=== PATIENT | male | born 1985 | race African-American/Black ===

== ENCOUNTER 2021-08-26 16:00 | Inpatient (IN) | payer MEDICAID ==
[~2021-08-26] VITALS: Ht 180.3 cm
[2021-08-26] MEDS ORDERED: olanzapine 10mg tablet PO STA (16:13)
[2021-08-26] MEDS ORDERED: LORazepam 1 MG tablet PO ONE (16:15)
[2021-08-26] MEDS ORDERED: DICL20GE TOP (16:46)
[2021-08-26 17:12] LABS: BASOPHILS # (AUTO) 0.1 X10'3 (0-0.2); BASOPHILS % (AUTO) 0.9 % (0-1); EOSINOPHILS # (AUTO) 0.1 X10'3 (0-0.9); EOSINOPHILS % (AUTO) 2.3 % (0-6); HEMATOCRIT 42.5 % (42.0-52.0); HEMOGLOBIN 13.9 g/dl (14.0-17.9); LYMPHOCYTES # (AUTO) 1.6 X10'3 (1.1-4.8); LYMPHOCYTES % (AUTO) 27.7 % (21-51); MEAN CORPUSCULAR HEMOGLOBIN 24.2 PG (27.0-31.0); MEAN CORPUSCULAR HGB CONC 32.7 g/dL (33.0-36.5); MEAN PLATELET VOLUME 8.4 FL (7.4-10.4); MONOCYTES # (AUTO) 0.4 X10'3 (0-0.9); MONOCYTES % (AUTO) 6.9 % (2-12); NEUTROPHILS # (AUTO) 3.6 X10'3 (1.8-7.7); NEUTROPHILS % (AUTO) 62.2 % (42-75); PLATELET COUNT 229 X10'3 (140-440); RED BLOOD COUNT 5.74 X10'6 (4.70-6.10); RED CELL DISTRIBUTION WIDTH 14.7 % (11.5-14.5); WHITE BLOOD COUNT 5.8 X10'3 (4.5-11.0)
[2021-08-26 17:21] LABS: ALANINE AMINOTRANSFERASE 106 U/L (12-78); ALBUMIN 4.1 G/DL (3.4-5.0); ALBUMIN/GLOBULIN RATIO 1.1 (1.1-1.5); ALKALINE PHOSPHATASE 57 IU/L (46-116); ANION GAP 11 (8-16); ASPARTATE AMINO TRANSFERASE 81 U/L (10-37); BILIRUBIN,TOTAL 0.3 MG/DL (0.1-1.0); BLOOD UREA NITROGEN 21 MG/DL (7-18); BUN/CREATININE RATIO 17.1 (5.4-32.0); CALCIUM 8.9 MG/DL (8.5-10.1); CHLORIDE 102 MMOL/L (99-107); CREATININE 1.23 MG/DL (0.60-1.10); GLUCOSE 103 MG/DL (70-104); POTASSIUM 4.2 MMOL/L (3.5-5.1); SODIUM 142 MMOL/L (135-145); TOTAL CARBON DIOXIDE 29.5 MMOL/L (24-32); eGFR 67 ML/MIN
[2021-08-26 17:22] LABS: CLARITY,URINE CLEAR (Clear); COLOR,URINE YELLOW (Yellow); GLUCOSE, URINE NEGATIVE (Neg); KETONES,URINE 15 mg/dl (Neg); LEUKOCYTE ESTERASE ,URINE NEGATIVE (Neg); NITRITES, URINE NEGATIVE (Neg); OCCULT BLOOD,URINE NEGATIVE (Neg); PH,URINE 5.5 (4.8-8.0); PROTEIN,URINE NEGATIVE (Neg)
[2021-08-26 17:24] LABS: UA COLLECTION TYPE VOIDED
[2021-08-26 17:30] LABS: ETHANOL < 0.010 GM/DL (0.0-0.010); VALPROATE 7 UG/ML (50-100)
--- NOTE | 2021-08-26 17:31 | NUR ---
TRIED TO WAKE UP PT ,BUT STATED "I AM TIRED AND SLEEPY IF YOU CAN COME LATER ".HAVE NOT DONE ASSESSMENT OR DID ANY SUICIDE ASSESSMENT AT THIS TIME.
[2021-08-26 17:35] LABS: URINE AMPHETAMINE SCREEN POSITIVE (Neg); URINE BARBITUATE SCREEN NEGATIVE (Neg); URINE BENZODIAZEPINES SCREEN NEGATIVE (Neg); URINE CANNABINOID SCREEN POSITIVE (Neg); URINE COCAINE SCREEN NEGATIVE (Neg); URINE METHADONE SCREEN NEGATIVE (Neg); URINE OPIATE SCREEN NEGATIVE (Neg); URINE PHENCYCLIDINE SCREEN NEGATIVE (Neg)
--- NOTE | 2021-08-26 17:44 | NUR ---
PT IS SLEEPING AT THIS TIME.
--- NOTE | 2021-08-26 18:15 | NUR ---
Received report from Reji RN, assumed care of pt. Pt currently in main ER bed 8, pt to be moved to Overflow by tech per Reji JOHNSON. Pt sleeping at this time, received one time order of Zyprexa and Ativan and has been resting per nurse.
--- NOTE | 2021-08-26 19:15 | NUR ---
Pt brought over from main ER to bed 21 by DOMINIC Multani, he was ambulatory, he does appear sedated, he was able to answer some questions, but due to sedation most history was obtained via chart review. He denies any pain at this time, stated he did want to eat dinner, which was provided to him, but patient has fallen asleep without eating.
--- NOTE | 2021-08-26 19:49 | NUR ---
Pt came in to ER due to not feeling safe [facility] the [facility], he is new to the area and lost his meds prior to his arrival. He has a dx of Schizophrenia and reports hearing command auditory hallucinations that tell him to kill himself. Denies any current S/I or H/I. No significant medical hx, he does have chronic knee pain. He denies any ETOH use, but recently used meth 2 days ago, no other drug hx. He is low risk for suicide, he is on a 179 and will be seen by [facility] tomorrow for eval.
--- NOTE | 2021-08-26 20:30 | NUR ---
Packet faxed to [facility], they called to notify us that they received it and that he will be seen in the am.
--- NOTE | 2021-08-26 21:46 | NUR ---
Pt awake, drank some water, requesting food, dinner tray was given, patient sitting up and eating at this time.
--- NOTE | 2021-08-26 21:50 | NUR ---
Pt does appear to be responding to internal stimuli, observed talking uriel h Addendum: 08/26/21 at 2150 by ANKITA observed talking to himself.
--- NOTE | 2021-08-26 23:29 | NUR ---
Pt sleeping on L side, no signs of distress.
--- NOTE | 2021-08-27 01:29 | NUR ---
Pt continues to sleep, no signs of distress.
--- NOTE | 2021-08-27 03:20 | NUR ---
Pt lying on L side, sleeping, no distress.
--- NOTE | 2021-08-27 05:09 | NUR ---
Pt remains asleep at this time, no signs of distress.
--- NOTE | 2021-08-27 06:30 | NUR ---
Patient appears to be sleeping. No distress noted, respirations even and unlabored.
--- NOTE | 2021-08-27 08:33 | NUR ---
Patient appears to be sleeping, no distress noted. Respirations even and unlabored.
--- NOTE | 2021-08-27 09:00 | NUR ---
Woke patient to eat breakfast and complete 1:1 assessment. Pt reports he came to the hospital because "I wasn't feeling safe." Pt reports intermittent auditory hallucinations saying "they are going to kill me." Pt endorses suicidal thoughts without a plan. Pt states he doesn't want to go back to the [facility] as "I don't feel safe." Pt states he moved from the [place] to go to [facility] [place] "[place]." Pt was recently kicked out of [facility] "for being high." Pt reports he has not been medication compliant unsure of last dose. Pt takes Depakote. Valproic level drawn 08/26 was 7. Pt reports one SA about six months ago - OD on pills. [facility] takes Depakote 750 mg BID last filled on 08/01. Bupropion XL 300 mg daily last filled on 06/05.
--- NOTE | 2021-08-27 10:30 | NUR ---
Pt continues to sleep comfortably, respirations even and unlabored.
[2021-08-27] MEDS ORDERED: DIVA125T31 PO (11:16)
[2021-08-27] MEDS ORDERED: DIVA-76 PO (11:16)
--- NOTE | 2021-08-27 11:30 | NUR ---
Called [facility] for current med list. Also left message with [facility] for updated med list. Pt stated he was recently "kicked out" r/t substance use.
--- NOTE | 2021-08-27 12:02 | NUR ---
[facility] at bedside.
--- NOTE | 2021-08-27 13:30 | NUR ---
Dr. Dixon declined to restart pt on psyche med Depakote until after psyche eval.
--- NOTE | 2021-08-27 13:42 | NUR ---
Pearl cardenas in ED - 08/27/21 at 1344 by SHALINI Pt requested paper and pen to "write." Pt up sitting calmly writing on pad of paper.
--- NOTE | 2021-08-27 13:45 | NUR ---
Pt up to bathroom.
--- NOTE | 2021-08-27 14:48 | NUR ---
RECEIVED PHONE CALL FROM [employer] MACHINE OPERATOR KOKO YEPEZ. STATES IS ANY QUESTIONS CALL HER AT [phone].
--- NOTE | 2021-08-27 15:53 | NUR ---
Pt sleeping comfortably on right side, respirations even and unlabored.
--- NOTE | 2021-08-27 16:30 | NUR ---
Patient was transferred to [facility].
[2021-08-27] MEDS ORDERED: loperamide 2mg capsule PO PRN (16:50)
[2021-08-27] MEDS ORDERED: acetaminophen 325mg tablet PO PRN (16:50)
[2021-08-27] MEDS ORDERED: magnesium hydroxide 30ml (MOM) UD suspension PO PRN (16:50)
[2021-08-27] MEDS ORDERED: mag hydrox/Alum hydrox/simeth 30ml oral suspension PO PRN (16:50)
[2021-08-27 16:59] VITALS: BP 127/59
--- NOTE | 2021-08-27 17:13 | NUR ---
Admission note: PT admitted to [facility] today on 5150 from the emergency room for GD. Pt presents as a failure to thrive as evidenced by being consumed with his fear of getting murdered. Pt believes that someone will kill him if he leaves the hospital. Pt states it is an overwhelming feeling. Pt reports he left [facility] 5-7 days ago and has not taken his medications since. Pt has history of Schizophrenia. Pt cooperative with the admission process. Pt positive for Amphetamines and THC.
[2021-08-27] MEDS: divalproex 250mg tablet, delayed-release PO SCH (20:02)
[2021-08-27] MEDS: divalproex sodium 500mg tablet.DR PO SCH (20:03)
[2021-08-27 20:55] VITALS: BP 130/77
--- NOTE | 2021-08-27 23:37 | NUR ---
Nursing Progress Note: Legal hold:5150 Client on voluntary/involuntary status for GD Report received from nurse Tung JOHNSON with use of SBAR . Why are they here: PT admitted to [facility] today on 5150 from the emergency room for GD. Pt presents as a failure to thrive as evidenced by being consumed with his fear of getting murdered. Pt believes that someone will kill him if he leaves the hospital. Pt states it is an overwhelming feeling. Pt reports he left [facility] 5-7 days ago and has not taken his medications since. Pt has history of Schizophrenia. Pt cooperative with the admission process. Pt positive for Amphetamines and THC. Assessment What has happened this shift:Patient was in the [place] at shift change. He asked this service writer if he could change rooms. He stated that he did not feel safe being in the room he is in. Pt moved to [address] and was more relaxed after the change. He ate snack in the group room keeping to him self. He was med compliant and cooperative. S/I, H/I:thoughts of people wanting to murder him A/VH: to kill self Sleep:See sleep assessment ADL's:independent Group attendance:none Were meds taken:yes Any med S/ENone Mental Status Exam Appearance: dressed in green unit attire. Eye contact: Avoidance Behavior: Quiet, self isolates. Speech: Clear, normal rate, low tone. Mood: Depressed. Affect: Congruent with mood. Thought process: Poverty of Thought Thought Content: Meeting own needs Cognition: paranoid Insight: Poor. Judgment: Poor. PRNs: None. Interventions Therapeutic interventions: Maintained a safe and therapeutic environment, ensured contract for safety, provided clear and simple instructions, attempted to orient to reality, monitored behaviors and need for intervention and redirection, provided active listening and positive encouragement, handwashing r/t +MRSA NS, and maintained Q 15min safety checks. Restraints/seclusion/emergency medication: N/A Justification: Patient continues to be disorganized and delusional. Pt unable to formulate a plan for food, group home or clothing. Pts Clozaril will continue to be titrated to a therapeutic level.
[2021-08-28 07:39] VITALS: BP 110/60
[2021-08-28] MEDS: divalproex sodium 500mg tablet.DR PO SCH ×2 (07:55→20:45)
[2021-08-28] MEDS: divalproex 250mg tablet, delayed-release PO SCH ×2 (07:55→20:45)
[2021-08-28] MEDS: nicotine 21mg patch - 24 hr TD SCH (07:55)
[2021-08-28 08:03] LABS: CHOL/HDL RATIO 4.9 (0.00-4.99); CHOLESTEROL 172 MG/DL (0-200); HDL CHOLESTEROL 35 MG/DL (35-60); LDL CHOLESTEROL 91 MG/DL (50-100); TRIGLYCERIDES 129 MG/DL (20-135)
[2021-08-28 08:20] LABS: HEMOGLOBIN A1C 5.8 % (4.5-6.2)
[2021-08-28] MEDS ORDERED: buPROPion SR 150mg tablet PO ONE (11:10)
[2021-08-28] MEDS: buPROPion SR 150mg tablet PO SCH (14:47)
--- NOTE | 2021-08-28 17:33 | NUR ---
Nursing Progress Note: Legal hold: 5150 Client on involuntary status for GD Report received from BIPIN Ramirez with use of SBAR. Why they are here: PT admitted to [facility] today on 5150 from the emergency room for GD. Pt presents as a failure to thrive as evidenced by being consumed with his fear of getting murdered. Pt believes that someone will kill him if he leaves the hospital. Pt states it is an overwhelming feeling. Pt reports he left [facility] 5-7 days ago and has not taken his medications since. Pt has history of Schizophrenia. Pt cooperative with the admission process. Pt positive for Amphetamines and THC. Assessment What has happened this shift: Patient is resting quietly in bed at the start of the shift. Eats meals in the community room and interacts appropriately with staff and peers. Cooperative with 1:1 assessment and medications. Engages in pleasant conversation and answers questions appropriately. Continues to believe that people are trying to kill him but does states, Its in my head. States he is feeling safe here on the unit and contracts for safety while here. Spends time in common areas socializing with peers and takes short naps and rests in his room. S/I, H/I: Thoughts of harming himself related to AH A/VH: Command hallucinations that tell him to harm himself Sleep: 1 hour in the morning, takes brief naps during the day ADL's: Independent Group attendance: yes Were meds taken: yes Any med S/E: None observed or reported Mental Status Exam Appearance: Young looking tall male, neat, clean, wearing green unit scrubs. Eye contact: Avoidant Behavior: Cooperative, guarded Speech: Clear, normal rate, soft Mood: Good. Affect: Congruent, full range Thought process: Paranoid, delusional Thought Content: Believes people are trying to kill him Cognition: A/O x3 to self, time and place Insight: Poor Judgment: Poor Interventions PRNs: None. Therapeutic interventions: Maintained a safe and therapeutic environment, ensured contract for safety, provided clear and simple instructions, attempted to orient to reality, monitored behaviors and need for intervention and redirection, provided active listening and positive encouragement, handwashing r/t +MRSA NS, and maintained Q 15min safety checks. Restraints/seclusion/emergency medication: N/A Justification: Patient continues to be disorganized and delusional. Pt unable to formulate a plan for food, fdc or clothing. Pts Clozaril will continue to be titrated to a therapeutic level.
[2021-08-28] MEDS: NICOTINE POLACRILEX 2 MG LOZENGE BC PRN (19:28)
[2021-08-28 19:35] VITALS: BP 122/70
--- NOTE | 2021-08-28 20:05 | NUR ---
Nora Jaimes: [phone]
[2021-08-28] MEDS: traZODone 50mg tablet PO PRN (20:44)
[2021-08-28] MEDS ORDERED: OLANZAPINE 5 MG TABLET PO SCH (21:00)
--- NOTE | 2021-08-29 02:51 | NUR ---
Nursing Progress Note: Legal hold: 5150 Client on involuntary status for GD Report received from BIPIN Ruby with use of SBAR. Why they are here: PT admitted to [facility] today on 5150 from the emergency room for GD. Pt presents as a failure to thrive as evidenced by being consumed with his fear of getting murdered. Pt believes that someone will kill him if he leaves the hospital. Pt states it is an overwhelming feeling. Pt reports he left [facility] 5-7 days ago and has not taken his medications since. Pt has history of Schizophrenia. Pt cooperative with the admission process. Pt positive for Amphetamines and THC. Assessment What has happened this shift: Patient watching TV in Rec room with other pts at start of shift. Introductions made, pt asked for nicotine lozenge. Pt spent shift watching TV till bedtime. Came to group room for snack. Pt pleasant and cooperative with care. Pt concerned that Zyprexa is making him gain weight but he agreed to take it tonight and talk to Doctor tomorrow about a possible different antipsychotic. Pt said he hears voices that say they are going to kill him. He says he always hears them and medication does not help. S/I, H/I: Thoughts of harming himself related to AH A/VH: Command hallucinations that tell him to harm himself Sleep: asleep at this time ADL's: Independent Group attendance: yes Were meds taken: yes Any med S/E: None observed or reported Mental Status Exam Appearance: Young looking tall male, neat, clean, wearing green unit scrubs. Eye contact: Avoidant Behavior: Cooperative, guarded Speech: Clear, normal rate, soft Mood: Good. Affect: Congruent, full range Thought process: Paranoid, delusional Thought Content: Believes people are trying to kill him Cognition: A/O x3 to self, time and place Insight: Poor Judgment: Poor Interventions PRNs: Trazodone Therapeutic interventions: Maintained a safe and therapeutic environment, ensured contract for safety, provided clear and simple instructions, attempted to orient to reality, monitored behaviors and need for intervention and redirection, provided active listening and positive encouragement, handwashing r/t +MRSA NS, and maintained Q 15min safety checks. Restraints/seclusion/emergency medication: N/A Justification: Patient continues to be disorganized and delusional. Pt unable to formulate a plan for food, long term or clothing. Pts Clozaril will continue to be titrated to a therapeutic level.
[2021-08-29 07:00] VITALS: BP 174/76
[2021-08-29] MEDS: divalproex 250mg tablet, delayed-release PO SCH ×2 (08:06→20:15)
[2021-08-29] MEDS: nicotine 21mg patch - 24 hr TD SCH (08:06)
[2021-08-29] MEDS: buPROPion SR 150mg tablet PO SCH ×2 (08:06→15:08)
[2021-08-29] MEDS: divalproex sodium 500mg tablet.DR PO SCH ×2 (08:06→20:15)
--- NOTE | 2021-08-29 17:52 | NUR ---
Nursing Progress Note: Legal hold: 5150 Client on involuntary status for GD Report received from BIPIN Ramirez with use of SBAR. Why they are here: PT admitted to [facility] today on 5150 from the emergency room for GD. Pt presents as a failure to thrive as evidenced by being consumed with his fear of getting murdered. Pt believes that someone will kill him if he leaves the hospital. Pt states it is an overwhelming feeling. Pt reports he left [facility] 5-7 days ago and has not taken his medications since. Pt has history of Schizophrenia. Pt cooperative with the admission process. Pt positive for Amphetamines and THC. Assessment What has happened this shift: Received pt. sleeping in bed at shift change. Patient attends meals and snacks in the community room, but does not engage with peers or staff. Patient reports that he is still having auditory hallucinations that make him feel suicidal. Patient mostly sits in the community room or in the rec room watching t.v. with others. Patient is guarded in his responses, and says Im good when ending the conversation. S/I, H/I: Thoughts of harming himself related to AH A/VH: Command hallucinations that tell him to harm himself Sleep: 7.0 hrs. ADL's: Independent Group attendance: NA Were meds taken: yes Any med S/E: None observed or reported Mental Status Exam Appearance: Clean, black, young male dressed in hospital attire. Eye contact: Avoidant Behavior: Cooperative, guarded Speech: Clear, normal rate, soft Mood: Im Good. Affect: Blunted. Thought process: Paranoid, delusional Thought Content: Believes people are trying to kill him Cognition: A/O x3 to self, time and place Insight: Poor Judgment: Poor Interventions PRNs: None. Therapeutic interventions: Maintained a safe and therapeutic environment, ensured contract for safety, provided clear and simple instructions, attempted to orient to reality, monitored behaviors and need for intervention and redirection, provided active listening and positive encouragement, handwashing r/t +MRSA NS, and maintained Q 15min safety checks. Restraints/seclusion/emergency medication: N/A Justification: Patient continues to be disorganized and delusional. Pt unable to formulate a plan for food, chcf or clothing.
[2021-08-29 19:34] VITALS: BP 113/66
[2021-08-29] MEDS: asenapine 5mg TAB.SUBL SL SCH (20:18)
[2021-08-29] MEDS: traZODone 50mg tablet PO PRN (20:20)
--- NOTE | 2021-08-30 03:17 | NUR ---
Nursing Progress Note: Legal hold: 5150 Client on involuntary status for GD Report received from BIPIN Ruby with use of SBAR. Why they are here: PT admitted to [facility] on 5150 from the emergency room for GD. Pt presents as a failure to thrive as evidenced by being consumed with his fear of getting murdered. Pt believes that someone will kill him if he leaves the hospital. Pt states it is an overwhelming feeling. Pt reports he left [facility] 5-7 days ago and has not taken his medications since. Pt has history of Schizophrenia. Pt cooperative with the admission process. Pt positive for Amphetamines and THC. Assessment What has happened this shift: Patient watching TV in group room with other pts. Pt spent shift watching TV till bedtime. Ate snack in group rooml Pt pleasant and cooperative with care. Pt started a new medication tonight pt verbalized that he had discussed this new medication with the Doctor. Pt said his day was "OK" he still hears voices and has SI but he describes it as "Not bad." S/I, H/I: Thoughts of harming himself related to AH A/VH: Command hallucinations that tell him to harm himself Sleep: asleep at this time ADL's: Independent Group attendance: yes Were meds taken: yes Any med S/E: None observed or reported Mental Status Exam Appearance: Young looking tall male, neat, clean, wearing green unit scrubs. Eye contact: Avoidant Behavior: Cooperative, guarded Speech: Clear, normal rate, soft Mood: Good. Affect: Congruent, full range Thought process: Paranoid, delusional Thought Content: Believes people are trying to kill him Cognition: A/O x3 to self, time and place Insight: Poor Judgment: Poor Interventions PRNs: Trazodone Therapeutic interventions: Maintained a safe and therapeutic environment, ensured contract for safety, provided clear and simple instructions, attempted to orient to reality, monitored behaviors and need for intervention and redirection, provided active listening and positive encouragement, handwashing r/t +MRSA NS, and maintained Q 15min safety checks. Restraints/seclusion/emergency medication: N/A Justification: Patient continues to be disorganized and delusional. Pt unable to formulate a plan for food, chcf or clothing. Pts Clozaril will continue to be titrated to a therapeutic level.
[2021-08-30 07:00] VITALS: BP 129/72
[2021-08-30] MEDS: divalproex sodium 500mg tablet.DR PO SCH ×2 (07:51→20:04)
[2021-08-30] MEDS: buPROPion SR 150mg tablet PO SCH ×2 (07:51→15:07)
[2021-08-30] MEDS: divalproex 250mg tablet, delayed-release PO SCH ×2 (07:52→20:05)
[2021-08-30] MEDS: asenapine 5mg TAB.SUBL SL SCH ×3 (08:00→20:05)
[2021-08-30] MEDS: nicotine 21mg patch - 24 hr TD SCH (08:02)
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
[2021-08-30] MEDS: traZODone 50mg tablet PO PRN (20:05)
[2021-08-30 20:39] VITALS: BP 117/72
--- NOTE | 2021-08-31 02:49 | NUR ---
Nursing Progress Note: Legal hold: 5150 Client on involuntary status for GD Report received from ALEX Ruby with use of SBAR . Why are they here: PT admitted to [facility] today on 5150 from the emergency room for GD. Pt presents as a failure to thrive as evidenced by being consumed with his fear of getting murdered. Pt believes that someone will kill him if he leaves the hospital. Pt states it is an overwhelming feeling. Pt reports he left [facility] 5-7 days ago and has not taken his medications since. Pt has history of Schizophrenia. Pt cooperative with the admission process. Pt positive for Amphetamines and THC. Assessment What has happened this shift: Patient was seen in the rec room for 1:1. He was sitting watching a football game with another peer. Patient states that he is feeling good, and is still happy in his new room. Patient is quiet and mild-mannered. He does not talk much, but answers yes/no questions. Patient says that he still feel people are after him. He went to group room for snacks, received HS meds, then went to bed. S/I, H/I: Denies A/VH: Patient has command hallucinations, telling him to kill himself. He also believs people want to kill him. Sleep: See sleep assessment ADL's: Independent Group attendance: None Were meds taken:yes Any med S/E: None reported or observed Mental Status Exam Appearance: Large black man wearing unit scrubs. Eye contact: Avoidance Behavior: Quiet, self isolates. Speech: Clear, normal rate, low tone. Mood: Depressed. Affect: Congruent with mood. Thought process: Poverty of Thought Thought Content: Meeting own needs Cognition: paranoid Insight: Poor. Judgment: Poor. PRNs: None. Interventions Therapeutic interventions: Maintained a safe and therapeutic environment, ensured contract for safety, provided clear and simple instructions, attempted to orient to reality, monitored behaviors and need for intervention and redirection, provided active listening and positive encouragement, handwashing r/t +MRSA NS, and maintained Q 15min safety checks. Restraints/seclusion/emergency medication: N/A Justification: Patient continues to be disorganized and delusional. Pt unable to formulate a plan for food, care home or clothing. Pts Clozaril will continue to be titrated to a therapeutic level.
[2021-08-31] MEDS: asenapine 5mg TAB.SUBL SL SCH (07:46)
[2021-08-31] MEDS: divalproex 250mg tablet, delayed-release PO SCH (07:46)
[2021-08-31] MEDS: buPROPion SR 150mg tablet PO SCH (07:46)
[2021-08-31] MEDS: nicotine 21mg patch - 24 hr TD SCH (07:46)
[2021-08-31] MEDS: divalproex sodium 500mg tablet.DR PO SCH ×2 (07:46→20:21)
[2021-08-31 08:06] VITALS: BP 132/69
--- NOTE | 2021-08-31 10:43 | NUR ---
Pt. attended group today. Todays group was about the difference between Growth Mindset vs. Fixed Mindset. We learned about the differences and then discussed what aspect of developing a growth mindset they wanted to work on. Pt. engaged minimally in the group. He was quiet and would share his thoughts only when asked. He appeared a guarded. He shared some growth areas he is interested in moving forward in but was very general and guarded. His demeanor was calm and pleasant. Kyra Greene LCSW
--- NOTE | 2021-08-31 11:10 | NUR ---
CM Presenting Issues: Pt's admitted to [facility] due to psychotic sxs impairing pt's ability to maintain self safely @ the [place]. Per assessment data, pt was recently paroled and rt to [facility], Rebeamer is Charity [phone]. Pt currently has [facility]. Interventions: SS had t/c with Charity Almaraz, left vm request rt t/c re pt's need to transfer his MediCal to [facility] and a referral to [facility] upon d/c for continuity of care. Plan: SS will continue to engage [facility] in clt's care and dcp activities when appropriate. Anahi Bee LCSW Addendum: 08/31/21 at 1127 by Anahi Bee Amended: Links added.
--- NOTE | 2021-08-31 13:44 | NUR ---
Nursing Progress Note: KIEL. Legal hold: 525 Expires 09/13 Client on involuntary status for GD Report received from BIPIN Aguilera with use of SBAR. Why they are here: PT admitted to [facility] today on 5150 from the emergency room for GD. Pt presents as a failure to thrive as evidenced by being consumed with his fear of getting murdered. Pt believes that someone will kill him if he leaves the hospital. Pt states it is an overwhelming feeling. Pt reports he left [facility] 5-7 days ago and has not taken his medications since. Pt has history of Schizophrenia. Pt cooperative with the admission process. Pt positive for Amphetamines and THC. Assessment What has happened this shift: Received patient sleeping at shift change, respirations even and unlabored. Pt woke prior to breakfast and sat in rec room with peers drinking coffee. Pt is pleasant and cooperative with care. Pt refused his morning Saphris, stating it makes my mouth numb, thats no good. Pt reports depression and sadness, but feels the medications are helping. Pt describes his mood as kelly chill. Pt is social, but quiet with peers, pt presents with a depressed affect. Some suicidal thoughts, but getting better. Voices are always there. S/I, H/I: Passive suicidal thoughts. Denies H/I. A/VH: Voices are always there. Denies VH. Sleep: 8.0 hours per sleep assessment. Napped after lunch. ADL's: Independent Group attendance: Yes Were meds taken: Yes, but refused Saphris makes my tongue numb. Any med S/E: Saphris makes pts tongue numb. Mental Status Exam Appearance: Clean, neat, tall man. Dressed in personal attire, beanie and keeps blanket wrapped around him. Eye contact: Fair Behavior: Cooperative, guarded, quiet. Social with peers, visible on unit. Watches T.V or lays on bed in his room. Speech: Clear, normal rate, soft Mood: kelly chill. Affect: Depressed. Thought process: Linear, intermittent delusions. Thought Content: Believes people are trying to kill him Cognition: A/O x3 to self, time and place Insight: Poor Judgment: Poor Interventions PRNs: None. Therapeutic interventions: Maintained a safe and therapeutic environment, provided clear and simple instructions, attempted to orient to reality, monitored behaviors and need for intervention and redirection, provided active listening and positive encouragement, handwashing r/t +MRSA NS, and maintained Q 15min safety checks. Restraints/seclusion/emergency medication: N/A Justification: Patient continues to report psychotic symptoms and has significant depressive symptoms. Patient continues to require medication adjustment and titration in a safe and therapeutic milieu.
--- NOTE | 2021-08-31 15:11 | NUR ---
Initial: Pt admit for paranoia and schizophrenia. Currently on a regular diet and eating well with mostly 100% PO intake throughout LOS. LBM 08/30. No documented edema or wounds. No nutrition diagnosis at this time. Will continue to follow. Recommendations: 1) Continue regular diet 2) Monitor need for additional protein for satiety; offer snacks 3) Bowel care PRN 4) Weekly scaled weights Addendum: 08/31/21 at [address] Amended: Links added.
[2021-08-31] MEDS: buPROPion SR 100mg tab PO SCH (15:20)
[2021-08-31 19:14] VITALS: BP 136/70
[2021-08-31] MEDS: traZODone 50mg tablet PO PRN (20:21)
--- NOTE | 2021-09-01 03:18 | NUR ---
Nursing Progress Note: Legal hold: 5150 Client on involuntary status for GD Report received from ALEX Ruby with use of SBAR . Why are they here: PT admitted to [facility] today on 5150 from the emergency room for GD. Pt presents as a failure to thrive as evidenced by being consumed with his fear of getting murdered. Pt believes that someone will kill him if he leaves the hospital. Pt states it is an overwhelming feeling. Pt reports he left [facility] 5-7 days ago and has not taken his medications since. Pt has history of Schizophrenia. Pt cooperative with the admission process. Pt positive for Amphetamines and THC. Assessment What has happened this shift: Patient was found sitting in community room watching tv at beginning of shift. Patient was polite and quiet, speaking very low. Patient participated in snack time and then took a shower. Patient took all night medications and requested second round of trazodone. Patient stated he needed to make sure he slept or the voices would keep him up. S/I, H/I: Denies A/VH: Patient has hallucinations people want to kill him. Sleep: See sleep assessment ADL's: Independent Group attendance: None Were meds taken:yes Any med S/E: None reported or observed Mental Status Exam Appearance: middle aged man wearing unit scrubs. Eye contact: Avoidance Behavior: Quiet, self isolates. Speech: Clear, normal rate, low tone. Mood: Depressed. Affect: Congruent with mood. Thought process: Poverty of Thought Thought Content: Meeting own needs Cognition: paranoid Insight: Poor. Judgment: Poor. PRNs: None. Interventions Therapeutic interventions: Maintained a safe and therapeutic environment, ensured contract for safety, provided clear and simple instructions, attempted to orient to reality, monitored behaviors and need for intervention and redirection, provided active listening and positive encouragement, handwashing r/t +MRSA NS, and maintained Q 15min safety checks. Restraints/seclusion/emergency medication: N/A Justification: Patient continues to be disorganized and delusional. Pt unable to formulate a plan for food, correction or clothing. Pts Clozaril will continue to be titrated to a therapeutic level.
[2021-09-01 07:13] VITALS: BP 153/63
[2021-09-01] MEDS: buPROPion SR 100mg tab PO SCH ×2 (07:24→15:14)
[2021-09-01] MEDS: divalproex sodium 500mg tablet.DR PO SCH ×2 (07:35→20:21)
[2021-09-01] MEDS: nicotine 21mg patch - 24 hr TD SCH (07:36)
--- NOTE | 2021-09-01 09:00 | NUR ---
CM Clinician had t/c w/Charity Almaraz, pt's Echocardiologist, per t/c pt will return to [facility] upon d/c. Stefani Almaraz suggests that SS contact [facility] [employer] Clin[facility] for dcp activities. Pt will need transportation upon d/c. Clinician contacted [facility] @ [phone], left vm request rt t/c for dcp purposes. Plan: Clinician will continue to engage [employer] in dcp activities. Anahi Bee LCSW Addendum: 09/01/21 at 0906 by Anahi Bee Amended: Links added.
--- NOTE | 2021-09-01 09:53 | NUR ---
CM Presenting Issues: Pt's a parolee from [facility], currently on 5249, Pt's Lining Closer informed that pt will need to rt to [facility] upon d/c and follow-up with [employer] services. Interventions: Clinician received t/c from [facility] clinician Yolie Herrera [phone] requesting admission records to connect pt to [facility] for services upon d/c as pt currently has [facility]. Clinician faxed psych eval & assessment, meds & labs to [facility] at [phone] Plan: will continue to engage [place] in pt's treatment/care/dcp activities. Anahi Bee LCSW Addendum: 09/01/21 at 1003 by Anahi Bee Amended: Links added.
--- NOTE | 2021-09-01 15:52 | NUR ---
Nursing Progress Note: KIEL. Legal hold: 525 Expires 09/13 Client on involuntary status for GD Report received from BIPIN Aguilera with use of SBAR. Why they are here: PT admitted to [facility] today on 5150 from the emergency room for GD. Pt presents as a failure to thrive as evidenced by being consumed with his fear of getting murdered. Pt believes that someone will kill him if he leaves the hospital. Pt states it is an overwhelming feeling. Pt reports he left [facility] 5-7 days ago and has not taken his medications since. Pt has history of Schizophrenia. Pt cooperative with the admission process. Pt positive for Amphetamines and THC. Assessment What has happened this shift: Received patient sleeping at shift change, respirations even and unlabored. Pt woke prior to breakfast and sat in group room with peers drinking coffee. Pt continues to be compliant with care and medications. Pt reports sleeping better with the increased dose of Trazadone and the removing of his nicotine patch. Pt attends group sessions and is socially appropriate with peers. Endorses depressive symptoms and continued suicidal thoughts. No delusional statements made this shift. S/I, H/I: Passive suicidal thoughts. Denies H/I. A/VH: Voices are always there. Denies VH. Sleep: 7.5 hours per sleep assessment. ADL's: Independent Group attendance: Yes both AM/PM. Were meds taken: Yes, without issue. Any med S/E: None reported or observed. Mental Status Exam Appearance: Clean, neat, tall man. Dressed in personal attire, beanie and keeps blanket wrapped around him. Eye contact: Fair Behavior: Cooperative, guarded, quiet. Social with peers, visible on unit. Watches T.V or lays on bed in his room. Speech: Clear, normal rate, soft Mood: kelly chill. Affect: Depressed. Thought process: Linear Thought Content: Wants to stay in this area. Cognition: A/O x3 Insight: Fair Judgment: Fair Interventions PRNs: None. Therapeutic interventions: Maintained a safe and therapeutic environment, provided clear and simple instructions, encouraged group participation, monitored behaviors and need for intervention and redirection, provided active listening and positive encouragement, handwashing r/t +MRSA NS, maintained Q 15min safety checks. Restraints/seclusion/emergency medication: N/A Justification: Patient continues to report psychotic symptoms and has significant depressive symptoms. Patient continues to require medication adjustment and titration in a safe and therapeutic milieu.
[2021-09-01 19:37] VITALS: BP 128/70
[2021-09-01] MEDS: PALIPERIDONE 3 MG TAB.ER.24 PO SCH (20:21)
[2021-09-01] MEDS: traZODone 50mg tablet PO PRN ×2 (20:21→21:56)
--- NOTE | 2021-09-02 00:14 | NUR ---
Nursing Progress Note: Legal hold: 5250 Expires 09/13 Client on involuntary status for GD Report received from BIPIN Gusman with use of SBAR. Why they are here: PT admitted to [facility] today on 5150 from the emergency room for GD. Pt presents as a failure to thrive as evidenced by being consumed with his fear of getting murdered. Pt believes that someone will kill him if he leaves the hospital. Pt states it is an overwhelming feeling. Pt reports he left [facility] 5-7 days ago and has not taken his medications since. Pt has history of Schizophrenia. Pt cooperative with the admission process. Pt positive for Amphetamines and THC. Assessment What happen this shift: Patient was found sitting in the recreation rrom watching tv at the beginning of the shift. Patient quietly kept to himself all shift. Patient stats he is hearing many voices but cant make out what there saying. Patient participated in snack and took night medications. Patient began pacing back and forth between bedroom and recreation room. Patient requested second round of trazodone to make sure he goes to sleep. S/I, H/I: Denies A/VH: Voices are always there. Denies VH. Sleep: See sleep assessment ADL's: Independent Group attendance: Yes both AM/PM. Were meds taken: Yes, without issue. Any med S/E: None reported or observed. Mental Status Exam Appearance: Clean, neat, tall man. Dressed in personal attire, beanie Eye contact: Fair Behavior: Cooperative, guarded, quiet. Social with peers, visible on unit. Watches T.V or lays on bed in his room. Speech: Clear, normal rate, soft Mood: kelly chill. Affect: Depressed. Thought process: Linear Thought Content: Wants to stay in this area. Cognition: A/O x3 Insight: Fair Judgment: Fair Interventions PRNs: None. Therapeutic interventions: Maintained a safe and therapeutic environment, provided clear and simple instructions, encouraged group participation, monitored behaviors and need for intervention and redirection, provided active listening and positive encouragement, handwashing r/t +MRSA NS, maintained Q 15min safety checks. Restraints/seclusion/emergency medication: N/A Justification: Patient continues to report psychotic symptoms and has significant depressive symptoms. Patient continues to require medication adjustment and titration in a safe and therapeutic milieu.
[2021-09-02 07:19] VITALS: BP 126/78
[2021-09-02] MEDS: divalproex sodium 500mg tablet.DR PO SCH ×2 (07:48→20:31)
[2021-09-02] MEDS: buPROPion SR 100mg tab PO SCH ×2 (07:49→15:05)
[2021-09-02] MEDS: nicotine 21mg patch - 24 hr TD SCH (07:50)
[2021-09-02] MEDS: NICOTINE POLACRILEX 2 MG LOZENGE BC PRN ×2 (08:58→15:07)
--- NOTE | 2021-09-02 15:58 | NUR ---
Probable Cause Hearing upheld for DTS/GD
--- NOTE | 2021-09-02 17:46 | NUR ---
Nursing Progress Note: Legal hold: 5250 Expires 09/13 Client on involuntary status for GD Report received from BIPIN Jensen with use of SBAR. Why they are here: PT admitted to [facility] today on 5150 from the emergency room for GD. Pt presents as a failure to thrive as evidenced by being consumed with his fear of getting murdered. Pt believes that someone will kill him if he leaves the hospital. Pt states it is an overwhelming feeling. Pt reports he left [facility] 5-7 days ago and has not taken his medications since. Pt has history of Schizophrenia. Pt cooperative with the admission process. Pt positive for Amphetamines and THC. Assessment What happen this shift: RN received pt. asleep in bed at start of shift. Pt. took all medications. Pt. is social with peers and observed talking during mealtimes. 1:1 done at bedside. Pt. reports that he continues to feel that someone is after him and wants to kill him. Pt. reports hearing a voice telling him that they are coming after him. Pt. reports SI without a plan. Pt. S/I, H/I: SI without a plan. A/VH: +AH, state the voices says, They are coming after you. Sleep: Pt. slept 6.75 hrs on NOC shift and napped intermittently during day shift. ADL's: Independent Group attendance: Yes, both groups. Were meds taken: Yes Any med S/E: Denies. None observed. Mental Status Exam Appearance: Clean, neat, wearing green unit scrubs. Eye contact: Fair Behavior: Cooperative, guarded with staff, but social with peers. Speech: Poverty of speech. Mood: Depressed. Affect: Congruent with mood. Thought process: Linear Thought Content: Circumstantial. Cognition: A/O x4 Insight: Fair Judgment: Fair Interventions PRNs: None. Therapeutic interventions: Maintained a safe and therapeutic environment, provided clear and simple instructions, encouraged group participation, monitored behaviors and need for intervention and redirection, provided active listening and positive encouragement, handwashing r/t +MRSA NS, maintained Q 15min safety checks. Restraints/seclusion/emergency medication: N/A Justification: Patient continues to report psychotic symptoms and has significant depressive symptoms. Patient continues to require medication adjustment and titration in a safe and therapeutic milieu.
[2021-09-02 19:34] VITALS: BP 131/82
[2021-09-02] MEDS: PALIPERIDONE 3 MG TAB.ER.24 PO SCH (20:31)
[2021-09-02] MEDS: traZODone 50mg tablet PO PRN ×2 (20:34→21:17)
[2021-09-02] MEDS ORDERED: PALIPERIDONE 3 MG TAB.ER.24 PO ONE (20:50)
--- NOTE | 2021-09-03 00:09 | NUR ---
Nursing Progress Note: Legal hold: 525 Expires 09/13 Client on involuntary status for GD Report received from ALEX Guerrero with use of SBAR. Why they are here: PT admitted to [facility] today on 5150 from the emergency room for GD. Pt presents as a failure to thrive as evidenced by being consumed with his fear of getting murdered. Pt believes that someone will kill him if he leaves the hospital. Pt states it is an overwhelming feeling. Pt reports he left [facility] 5-7 days ago and has not taken his medications since. Pt has history of Schizophrenia. Pt cooperative with the admission process. Pt positive for Amphetamines and THC. Assessment What happen this shift: Pt was watching TV in Rec room at shift change. Pt interacted with other pts in between dinner and snack. 1:1, pt stated that he hears voices that people are out to get him. He doesn't know when or how but he just knows. Pt took meds at med pass w/o complications. Pt asked for PRN Trazodone. Pt ate snack at snack time and went to watch TV in rec room. Pt approached this nurse an hour after med pass and asked for a repeat of Trazodone because he can't sleep, states that he only hears voices in his room and could he switch rooms. Due to other pts switching room this night there were no available rooms. Pt was told to wait an hour to see if the medication would take affect and we'd go from there. Pt went to bed shortly after. A/VH: +AH, state the voices says, They are coming after you. Sleep: See sleep hours ADL's: Independent Group attendance: no group in the evenings Were meds taken: Yes Any med S/E: Denies. None observed. Mental Status Exam Appearance: Clean, neat, wearing green unit scrubs. Eye contact: Fair Behavior: Cooperative, social with peers. Speech: Poverty of speech. Mood: Depressed. Affect: Congruent with mood. Thought process: Linear Thought Content: Circumstantial. Cognition: A/O x4 Insight: Fair Judgment: Fair Interventions PRNs: Trazodone 200mg Therapeutic interventions: Maintained a safe and therapeutic environment, provided clear and simple instructions, encouraged group participation, monitored behaviors and need for intervention and redirection, provided active listening and positive encouragement, handwashing r/t +MRSA NS, maintained Q 15min safety checks. Restraints/seclusion/emergency medication: N/A Justification: Patient continues to report psychotic symptoms and has significant depressive symptoms. Patient continues to require medication adjustment and titration in a safe and therapeutic milieu.
[2021-09-03] MEDS: buPROPion SR 100mg tab PO SCH ×2 (07:46→15:42)
[2021-09-03] MEDS: divalproex sodium 500mg tablet.DR PO SCH ×2 (07:46→20:08)
[2021-09-03] MEDS: nicotine 21mg patch - 24 hr TD SCH (07:48)
[2021-09-03 08:00] VITALS: BP 129/72
[2021-09-03] MEDS: NICOTINE POLACRILEX 2 MG LOZENGE BC PRN (08:28)
--- NOTE | 2021-09-03 17:06 | NUR ---
Nursing Progress Note: Legal hold: 5250 Expires 09/13 Client on involuntary status for GD Report received from BIPIN Fu with use of SBAR. Why they are here: PT admitted to [facility] today on 5150 from the emergency room for GD. Pt presents as a failure to thrive as evidenced by being consumed with his fear of getting murdered. Pt believes that someone will kill him if he leaves the hospital. Pt states it is an overwhelming feeling. Pt reports he left [facility] 5-7 days ago and has not taken his medications since. Pt has history of Schizophrenia. Pt cooperative with the admission process. Pt positive for Amphetamines and THC. Assessment What happen this shift: RN received pt. asleep in bed at start of shift. Pt. awoke for breakfast and took all medications. Pt. is social with peers and observed in community room socializing and joking with peers. 1:1 done at bedside. Pt. denies all mental health symptoms and reports that he feels, good. Pt. gives minimal information during interview. Pt. watching TV in community room in the afternoon. S/I, H/I: Denies A/VH: Denies Sleep: Pt. slept 6.75 hrs on NOC shift and napped intermittently during day shift. ADL's: Independent Group attendance: NA Were meds taken: Yes Any med S/E: Denies. None observed. Mental Status Exam Appearance: Clean, neat, wearing green unit scrubs. Eye contact: Fair Behavior: Cooperative, pleasant, social, watching TV in community room. Speech: WNL Mood: Euthymic Affect: Congruent with mood. Thought process: Linear Thought Content: Circumstantial. Cognition: A/O x4 Insight: Fair Judgment: Fair Interventions PRNs: None. Therapeutic interventions: Maintained a safe and therapeutic environment, provided clear and simple instructions, encouraged group participation, monitored behaviors and need for intervention and redirection, provided active listening and positive encouragement, handwashing r/t +MRSA NS, maintained Q 15min safety checks. Restraints/seclusion/emergency medication: N/A Justification: Patient continues to report psychotic symptoms and has significant depressive symptoms. Patient continues to require medication adjustment and titration in a safe and therapeutic milieu.
[2021-09-03 19:18] VITALS: BP 132/75
[2021-09-03] MEDS: PALIPERIDONE 3 MG TAB.ER.24 PO SCH (20:08)
[2021-09-03] MEDS: traZODone 50mg tablet PO PRN ×2 (20:09→20:58)
[2021-09-03] MEDS: LORazepam 1 MG tablet PO PRN (23:08)
--- NOTE | 2021-09-03 23:43 | NUR ---
Nursing Progress Note: Legal hold: 525 Expires 09/13 Client on involuntary status for GD Report received from ALEX Gusman with use of SBAR. Why they are here: PT admitted to [facility] today on 5150 from the emergency room for GD. Pt presents as a failure to thrive as evidenced by being consumed with his fear of getting murdered. Pt believes that someone will kill him if he leaves the hospital. Pt states it is an overwhelming feeling. Pt reports he left [facility] 5-7 days ago and has not taken his medications since. Pt has history of Schizophrenia. Pt cooperative with the admission process. Pt positive for Amphetamines and THC. Assessment What happen this shift: Pt in rec room at shift change. Pt said he had a good day today and was not hearing voices at this time. Pt had snack at snack time and conversed with other pts in community room and rec room. Pt took medications at med pass w/o complications. Pt asked for Trazodone PRN at evening med pass, an hour later pt asked for a second voice as he was getting anxious at having to go to bed. Pt approached this nurse at 2300 and said he couldn't sleep due to anxiety about hearing voices when he tries to sleep. Dr Koenig orders pt Ativan TID PRN. Pt goes to bed shortly after 1st dose given. S/I, H/I: Denies A/VH: Denies Sleep: See sleep hours. ADL's: Independent Group attendance: No group in the evenings. Were meds taken: Yes Any med S/E: Denies. None observed. Mental Status Exam Appearance: Clean, neat, wearing green unit scrubs. Eye contact: Fair Behavior: Cooperative, pleasant, social, watching TV in community room. Speech: WNL Mood: Euthymic Affect: Congruent with mood. Thought process: Linear Thought Content: Circumstantial. Cognition: A/O x4 Insight: Fair Judgment: Fair Interventions PRNs: Trazodone 100mg X 2, Ativan 1mg Therapeutic interventions: Maintained a safe and therapeutic environment, provided clear and simple instructions, encouraged group participation, monitored behaviors and need for intervention and redirection, provided active listening and positive encouragement, handwashing r/t +MRSA NS, maintained Q 15min safety checks. Restraints/seclusion/emergency medication: N/A Justification: Patient continues to report psychotic symptoms and has significant depressive symptoms. Patient continues to require medication adjustment and titration in a safe and therapeutic milieu.
[2021-09-04 07:00] VITALS: BP 102/69
[2021-09-04] MEDS: divalproex sodium 500mg tablet.DR PO SCH ×2 (07:52→20:16)
[2021-09-04] MEDS: buPROPion SR 100mg tab PO SCH ×2 (07:53→15:01)
[2021-09-04] MEDS: nicotine 21mg patch - 24 hr TD SCH (07:56)
--- NOTE | 2021-09-04 17:31 | NUR ---
Nursing Progress Note: Legal hold: 525 Expires 09/13 Client on involuntary status for GD Report received from ALEX Ramirez with use of SBAR. Why they are here: PT admitted to [facility] today on 5149 from the emergency room for GD. Pt presents as a failure to thrive as evidenced by being consumed with his fear of getting murdered. Pt believes that someone will kill him if he leaves the hospital. Pt states it is an overwhelming feeling. Pt reports he left [facility] 5-7 days ago and has not taken his medications since. Pt has history of Schizophrenia. Pt cooperative with the admission process. Pt positive for Amphetamines and THC. Assessment What happen this shift: Received patient while he was awake in the TV room watching TV and drinking coffee. 1:1 patient assessment completed. Patient reports feeling better today. States I slept really well. Depakote administered with medications. Last Depakote level was 7 on 08/26/21. Patient sits in the TV room all day, speaking with peers and watching football. No complaints reported. Patient denied any auditory or visual hallucinations. S/I, H/I: Denies A/VH: Denies Sleep: Up all day today. ADL's: Independent Group attendance: No Group Meeting held today. Were meds taken: Yes, without hesitation. Any med S/E: Denies. None observed or reported. Mental Status Exam Appearance: Clean appearing male wearing a beanie on his head, wearing green unit scrubs. Eye contact: Fair Behavior: Cooperative, pleasant, social, watching TV in community room. Speech: WNL Mood: Euthymic Affect: Congruent with mood. Thought process: Linear Thought Content: Circumstantial. Cognition: A/O x4 Insight: Fair Judgment: Fair Interventions PRNs: None Given Therapeutic interventions: Maintained a safe and therapeutic environment, provided clear and simple instructions, encouraged group participation, monitored behaviors and need for intervention and redirection, provided active listening and positive encouragement, handwashing r/t +MRSA NS, maintained Q 15min safety checks. Restraints/seclusion/emergency medication: N/A Justification: Patient continues to report psychotic symptoms and has significant depressive symptoms. Patient continues to require medication adjustment and titration in a safe and therapeutic milieu.
[2021-09-04 19:21] VITALS: BP 138/76
[2021-09-04] MEDS: acetaminophen 325mg tablet PO PRN (19:21)
[2021-09-04] MEDS: traZODone 50mg tablet PO PRN ×2 (20:16→21:02)
[2021-09-04] MEDS ORDERED: PALIPERIDONE 3 MG TAB.ER.24 PO SCH (21:00)
[2021-09-04] MEDS: LORazepam 1 MG tablet PO PRN (21:05)
--- NOTE | 2021-09-05 03:50 | NUR ---
Nursing Progress Note: Legal hold: 5249 Expires 09/13 Client on involuntary status for GD Report received from ALEX Mena with use of SBAR. Why they are here: PT admitted to [facility] today on 515 from the emergency room for GD. Pt presents as a failure to thrive as evidenced by being consumed with his fear of getting murdered. Pt believes that someone will kill him if he leaves the hospital. Pt states it is an overwhelming feeling. Pt reports he left [facility] 5-7 days ago and has not taken his medications since. Pt has history of Schizophrenia. Pt cooperative with the admission process. Pt positive for Amphetamines and THC. Assessment What happen this shift: Patient was found sitting in recreation room watching tv with roommate. Patient requested Tylenol for a 05/14 headache. Patient participated in snack and requested trazodone with his night medications. Patient was quiet and cooperative and reported he wasn't hearing voices but he was feeling a little anxious. Patient was given Ativan. Patient stayed in rec room until lights out. S/I, H/I: Denies A/VH: Denies Sleep: See sleep hours. ADL's: Independent Group attendance: No group in the evenings. Were meds taken: Yes Any med S/E: Denies. None observed. Mental Status Exam Appearance: Clean, neat, wearing green unit scrubs. Eye contact: Fair Behavior: Cooperative, pleasant, social, watching TV in community room. Speech: WNL Mood: Euthymic Affect: Congruent with mood. Thought process: Linear Thought Content: Circumstantial. Cognition: A/O x4 Insight: Fair Judgment: Fair Interventions PRNs: Trazodone 100mg X 2, Ativan 1mg Therapeutic interventions: Maintained a safe and therapeutic environment, provided clear and simple instructions, encouraged group participation, monitored behaviors and need for intervention and redirection, provided active listening and positive encouragement, handwashing r/t +MRSA NS, maintained Q 15min safety checks. Restraints/seclusion/emergency medication: N/A Justification: Patient continues to report psychotic symptoms and has significant depressive symptoms. Patient continues to require medication adjustment and titration in a safe and therapeutic milieu.
[2021-09-05 07:46] VITALS: BP 125/75
[2021-09-05] MEDS: divalproex sodium 500mg tablet.DR PO SCH ×2 (08:02→20:29)
[2021-09-05] MEDS: nicotine 21mg patch - 24 hr TD SCH (08:02)
[2021-09-05] MEDS: buPROPion SR 100mg tab PO SCH ×2 (08:04→14:18)
--- NOTE | 2021-09-05 17:40 | NUR ---
Nursing Progress Note: Legal hold: 5250 Expires 09/13 Client on involuntary status for GD Report received from Chg. Ashley RN with use of SBAR. Why they are here: PT admitted to [facility] today on 5150 from the emergency room for GD. Pt presents as a failure to thrive as evidenced by being consumed with his fear of getting murdered. Pt believes that someone will kill him if he leaves the hospital. Pt states it is an overwhelming feeling. Pt reports he left [facility] 5-7 days ago and has not taken his medications since. Pt has history of Schizophrenia. Pt cooperative with the admission process. Pt positive for Amphetamines and THC. Assessment What happen this shift: Received patient while he was sitting in the TV Room watching TV with 2 other peers. Patient is quiet and reserved most of the day. Medications given per MD orders. Requested Nicotine Lozenge right after breakfast (827). Patient reports no hallucinations in the past day and states I feel like Im making improvement. Patient ate his meals in the dining room and enjoyed the snack breaks. Patient is pleasant and cooperative, and engages with peers throughout the entire day. Showered, and felt much better. S/I, H/I: Denies A/VH: Denies Sleep: Awake all day. ADL's: Independent, Showered Today. Group attendance: No group in the evenings. Were meds taken: Yes, without hesitation Any med S/E: None observed or reported. Mental Status Exam Appearance: Clean, neat, wearing green unit scrubs. Eye contact: Fair Behavior: Cooperative, pleasant, social, watching TV in community room. Speech: WNL Mood: Euthymic Affect: Congruent with mood. Thought process: Linear Thought Content: Circumstantial. Cognition: A/O x4 Insight: Fair Judgment: Fair Interventions PRNs: Nicotine Lozenge @ 0828 Therapeutic interventions: Maintained a safe and therapeutic environment, provided clear and simple instructions, encouraged group participation, monitored behaviors and need for intervention and redirection, provided active listening and positive encouragement, handwashing r/t +MRSA NS, maintained Q 15min safety checks. Restraints/seclusion/emergency medication: N/A Justification: Patient continues to report psychotic symptoms and has significant depressive symptoms. Patient continues to require medication adjustment and titration in a safe and therapeutic milieu.
[2021-09-05] MEDS: acetaminophen 325mg tablet PO PRN (18:44)
[2021-09-05 19:11] VITALS: BP 116/83
[2021-09-05] MEDS: LORazepam 1 MG tablet PO PRN (20:28)
[2021-09-05] MEDS: PALIPERIDONE 3 MG TAB.ER.24 PO SCH (20:29)
[2021-09-05] MEDS: traZODone 50mg tablet PO SCH (20:29)
--- NOTE | 2021-09-06 01:17 | NUR ---
Nursing Progress Note: Legal hold: 5250 Expires 09/13 Client on involuntary status for GD Report received from Chg. Rajesh RN with use of SBAR. Why they are here: PT admitted to [facility] today on 5150 from the emergency room for GD. Pt presents as a failure to thrive as evidenced by being consumed with his fear of getting murdered. Pt believes that someone will kill him if he leaves the hospital. Pt states it is an overwhelming feeling. Pt reports he left [facility] 5-7 days ago and has not taken his medications since. Pt has history of Schizophrenia. Pt cooperative with the admission process. Pt positive for Amphetamines and THC. Assessment What happen this shift: Patient sitting in the Rec Room watching Football with another pt at start of shift. Covers head with blanket poor eye contact. Requested Tylenol for headache. Speech is soft and quiet. He answers direct questions. Later in shift sitting at a table in group room across from another pt coloring. Not observed interacting with peers but affect was brighter. Cooperative with care took all meds. S/I, H/I: Denies A/VH: Denies Sleep: Asleep at this time ADL's: Independent, Showered Today. Group attendance: No group in the evenings. Were meds taken: Yes, without hesitation Any med S/E: None observed or reported. Mental Status Exam Appearance: Clean, neat, wearing green unit scrubs. Eye contact: Fair Behavior: Cooperative, pleasant, social, watching TV in community room. Speech: WNL Mood: Euthymic Affect: Congruent with mood. Thought process: Linear Thought Content: Circumstantial. Cognition: A/O x4 Insight: Fair Judgment: Fair Interventions PRNs: Ativan at HS Therapeutic interventions: Maintained a safe and therapeutic environment, provided clear and simple instructions, encouraged group participation, monitored behaviors and need for intervention and redirection, provided active listening and positive encouragement, handwashing r/t +MRSA NS, maintained Q 15min safety checks. Restraints/seclusion/emergency medication: N/A Justification: Patient continues to report psychotic symptoms and has significant depressive symptoms. Patient continues to require medication adjustment and titration in a safe and therapeutic milieu.
[2021-09-06 07:29] VITALS: BP 119/64
[2021-09-06] MEDS: buPROPion SR 100mg tab PO SCH ×2 (07:58→13:10)
[2021-09-06] MEDS: divalproex sodium 500mg tablet.DR PO SCH ×2 (07:58→20:21)
[2021-09-06] MEDS: nicotine 21mg patch - 24 hr TD SCH (08:00)
--- NOTE | 2021-09-06 15:49 | NUR ---
Nursing Progress Note: Legal hold: 525 Expires 09/13 Client on involuntary status for GD Report received from RN with use of SBAR Why they are here: PT admitted to [facility] today on 5150 from the emergency room for GD. Pt presents as a failure to thrive as evidenced by being consumed with his fear of getting murdered. Pt believes that someone will kill him if he leaves the hospital. Pt states it is an overwhelming feeling. Pt reports he left [facility] 5-7 days ago and has not taken his medications since. Pt has history of Schizophrenia. Pt cooperative with the admission process. Pt positive for Amphetamines and THC. Assessment What happen this shift: Received patient in bed sleeping w/o distress at the beginning of the shift. Pt up before breakfast watching TV in community room and talking with other Pts. Pt ate all meals well. He took medications as prescribed w/o issue. Patient is pleasant and cooperative, and engages with peers and staff. Patient reports no hallucinations in the past day and states Im doing OK. Pt will answer questions but is guarded. S/I, H/I: Denies A/VH: Denies Sleep: None this shift ADL's: Independent Group attendance: No group today Were meds taken: Yes Any med S/E: None observed or reported Mental Status Exam Appearance: Clean and casual in green scrubs. Eye contact: Fair Behavior: Cooperative, pleasant, social, watching TV with others Speech: Coherent, clear Mood: Euthymic Affect: Congruent with mood Thought process: Linear Thought Content: Circumstantial Cognition: A/O x4 Insight: Fair Judgment: Fair Interventions PRNs: Therapeutic interventions: Maintained a safe and therapeutic environment, provided clear and simple instructions, encouraged group participation, monitored behaviors and need for intervention and redirection, provided active listening and positive encouragement, handwashing r/t +MRSA NS, maintained Q 15min safety checks. Restraints/seclusion/emergency medication: N/A Justification: Patient continues to report psychotic symptoms and has significant depressive symptoms. Patient continues to require medication adjustment and titration in a safe and therapeutic milieu.
[2021-09-06 19:34] VITALS: BP 116/77
[2021-09-06] MEDS: traZODone 50mg tablet PO SCH (20:21)
[2021-09-06] MEDS: LORazepam 1 MG tablet PO PRN (20:21)
[2021-09-06] MEDS: PALIPERIDONE 3 MG TAB.ER.24 PO SCH (20:21)
--- NOTE | 2021-09-07 03:14 | NUR ---
Nursing Progress Note: Legal hold: 5249 Expires 09/13 Client on involuntary status for GD Report received from Uzma VOSS with use of SBAR Why they are here: PT admitted to [facility] on 5149 from the emergency room for GD. Pt presents as a failure to thrive as evidenced by being consumed with his fear of getting murdered. Pt believed that someone will kill him if he leaves the hospital. Pt states it is an overwhelming feeling. Pt reported he left [facility] 5-7 days before and had not taken his medications since. Pt has history of Schizophrenia. Pt cooperative with the admission process. Pt positive for Amphetamines and THC. Assessment What happen this shift: Pt watching TV in Rec room with other pts at the start of shift. Pt asked about his hold. After the 5249 hold was explained to him he verbalized understanding. Pt is not distressed about being on a hold. He said he is getting better and being here is helping him. Pt pleasant and cooperative will answer questions but is guarded. Took all medications went to bed. S/I, H/I: Denies A/VH: Denies Sleep: Asleep at this time ADL's: Independent Group attendance: No group today Were meds taken: Yes Any med S/E: None observed or reported Mental Status Exam Appearance: Clean and casual in green scrubs. Eye contact: Fair Behavior: Cooperative, pleasant, social, watching TV with others Speech: Coherent, clear Mood: Euthymic Affect: Congruent with mood Thought process: Linear Thought Content: Circumstantial Cognition: A/O x4 Insight: Fair Judgment: Fair Interventions PRNs: Therapeutic interventions: Maintained a safe and therapeutic environment, provided clear and simple instructions, encouraged group participation, monitored behaviors and need for intervention and redirection, provided active listening and positive encouragement, handwashing r/t +MRSA NS, maintained Q 15min safety checks. Restraints/seclusion/emergency medication: N/A Justification: Patient continues to report psychotic symptoms and has significant depressive symptoms. Patient continues to require medication adjustment and titration in a safe and therapeutic milieu.
--- NOTE | 2021-09-07 07:28 | NUR ---
Reassessment. Pt Currently on a regular diet and eating well with mostly 100% PO intake throughout LOS, also noted to consume snacks. LBM 09/04. No nutrition intervention implemented at this time, will continue to monitor. Recs: 1. Continue Regular diet as tolerated 2. Bowel care per rx 3. Weekly wts Addendum: 09/07/21 at [address] Amended: Links added.
[2021-09-07 07:33] VITALS: BP 120/75
[2021-09-07] MEDS: divalproex sodium 500mg tablet.DR PO SCH ×2 (07:51→20:07)
[2021-09-07] MEDS: buPROPion SR 100mg tab PO SCH ×2 (07:51→13:12)
[2021-09-07] MEDS: nicotine 21mg patch - 24 hr TD SCH (07:52)
--- NOTE | 2021-09-07 09:02 | NUR ---
Pt. attended group today. We talked about healthy living habits such as sleep, exercise, and nutrition and medication management. Pt. sat quietly in the group listening to his peers and this Maintenance And Operations Supervisor. He declined sharing any of his thoughts. His overall demeanor was calm and pleasant. Kyra Greene LCSW
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
[2021-09-07] MEDS: LORazepam 1 MG tablet PO PRN (19:00)
[2021-09-07 19:47] VITALS: BP 124/82
[2021-09-07] MEDS: traZODone 50mg tablet PO SCH (20:07)
[2021-09-07] MEDS: PALIPERIDONE 3 MG TAB.ER.24 PO SCH (20:09)
--- NOTE | 2021-09-08 00:15 | NUR ---
Nursing Progress Note: Chris Khanna Legal hold: 5250 Client on involuntary status for GD Report received from ALEX Gusman with use of SBAR Why they are here: PT admitted to [facility] today on 5150 from the emergency room for GD. Pt presents as a failure to thrive as evidenced by being consumed with his fear of getting murdered. Pt believes that someone will kill him if he leaves the hospital. Pt states it is an overwhelming feeling. Pt reports he left [facility] 5-7 days ago and has not taken his medications since. Pt has history of Schizophrenia. Pt cooperative with the admission process. Pt positive for Amphetamines and THC. Assessment What happen this shift: Pt watching TV with cohorts in rec room at shift change. Pt busy watching Georges Maradiaga, when pt approached this nurse and stated that he was hearing voices coming from the lights and he was starting to feel anxious. The pt was offered a Ativan 1mg tablet for anxiety. the pt took the tablet and sat back down with other patients to watch the movie. Pt ate snack in community room with cohorts at snack time. Pt took all medications w/o complications., Pt went to sleep shortly after med pass. S/I, H/I: Denies A/VH: Endorses AH, Denies VH Sleep: See sleep hours ADL's: Independent Group attendance:no group in the evenings Were meds taken: Yes Any med S/E: None observed or reported Mental Status Exam Appearance: Male physically fit wearing green unit scrubs. Eye contact: Fair Behavior: Cooperative Speech: Clear soft spoken Mood: anxious Affect: Congruent with mood Thought process: Linear Thought Content: Circumstantial Cognition: A/O x4 Insight: Fair Judgment: Fair Interventions PRNs:Ativan 1mg Therapeutic interventions: Maintained a safe and therapeutic environment, provided clear and simple instructions, encouraged group participation, monitored behaviors and need for intervention and redirection, provided active listening and positive encouragement, handwashing r/t +MRSA NS, maintained Q 15min safety checks. Restraints/seclusion/emergency medication: N/A Justification: Patient continues to report psychotic symptoms and has significant depressive symptoms. Patient continues to require medication adjustment and titration in a safe and therapeutic milieu.
[2021-09-08 07:20] VITALS: BP 114/69
[2021-09-08] MEDS: divalproex sodium 500mg tablet.DR PO SCH ×2 (07:31→20:04)
[2021-09-08] MEDS: buPROPion SR 100mg tab PO SCH ×2 (07:32→13:44)
[2021-09-08] MEDS: nicotine 21mg patch - 24 hr TD SCH (07:33)
--- NOTE | 2021-09-08 09:22 | NUR ---
Pt. attended group today. We discussed Radical Acceptance and Distress Tolerance skills. This Engine Tester led a visualization that Pt. participated in. We completed a Self-Care Wheel exercise as well. Pt. engaged in group minimally. He listened intently but shared his thoughts and feelings minimally. His demeanor was calm and pleasant. He was alert and oriented X 4. He gets along well with his peers, he was playing dominoes before group. His thought content and thought process were WNL. Kyra Greene LCSW
--- NOTE | 2021-09-08 16:24 | NUR ---
Nursing Progress Note: Chris Khanna Legal hold: 5250 Client on involuntary status for GD Report received from ALEX Aguilera with use of SBAR Why they are here: PT admitted to [facility] today on 5150 from the emergency room for GD. Pt presents as a failure to thrive as evidenced by being consumed with his fear of getting murdered. Pt believes that someone will kill him if he leaves the hospital. Pt states it is an overwhelming feeling. Pt reports he left [facility] 5-7 days ago and has not taken his medications since. Pt has history of Schizophrenia. Pt cooperative with the admission process. Pt positive for Amphetamines and THC. Assessment What happen this shift: Patient received awake in his room, compliant with medication and 1:1 assessment completed. Pt. denies SI, HI, he continues to presents as delusional endorses AH stating yes, I hear voices telling me to go home so I can be killed Pt. reports he was admitted here d/t the voices caused me a lot of problems Pt. states he has no plan dont know where Ill go if discharged. Pt. presents as cooperative but down. Pt. spent a few hours of his day watching tv with cohorts in common area room. He attended group and interacted minimally w/cohorts. Pt. ate all his meals in the dining room and interacts appropriately. S/I, H/I: Denies both A/VH: Endorses AH, Denies VH Sleep: 7.75 hrs per NOC shift ADL's: Independent Group attendance: Yes Were meds taken: Yes Any med S/E: None observed or reported Mental Status Exam Appearance: Male physically fit and wearing green unit scrubs. Eye contact: Fair Behavior: Cooperative Speech: Clear soft spoken Mood: Down cast Affect: Congruent with mood Thought process: Linear Thought Content: Circumstantial Cognition: A/O x4 Insight: Fair Judgment: Fair Interventions PRNs: None Therapeutic interventions: Maintained a safe and therapeutic environment, provided clear and simple instructions, encouraged group participation, monitored behaviors and need for intervention and redirection, provided active listening and positive encouragement, handwashing r/t +MRSA NS, maintained Q 15min safety checks. Restraints/seclusion/emergency medication: N/A Justification: Patient continues to report psychotic symptoms and has significant depressive symptoms. Patient continues to require medication adjustment and titration in a safe and therapeutic m
[2021-09-08] MEDS: lurasidone 20mg tablet PO SCH (17:13)
[2021-09-08 19:31] VITALS: BP 121/79
[2021-09-08] MEDS: traZODone 50mg tablet PO SCH (20:05)
[2021-09-08] MEDS: PALIPERIDONE 3 MG TAB.ER.24 PO SCH (20:05)
--- NOTE | 2021-09-08 23:19 | NUR ---
Nursing Progress Note: Jamieramona WeldonChanda Legal hold: 5250 Client on involuntary status for GD Report received from ALEX Gusman with use of SBAR Why they are here: PT admitted to [facility] today on 5150 from the emergency room for GD. Pt presents as a failure to thrive as evidenced by being consumed with his fear of getting murdered. Pt believes that someone will kill him if he leaves the hospital. Pt states it is an overwhelming feeling. Pt reports he left [facility] 5-7 days ago and has not taken his medications since. Pt has history of Schizophrenia. Pt cooperative with the admission process. Pt positive for Amphetamines and THC. Assessment What happen this shift: Pt in rec room watching TV vwith cohorts after dinner. Pt cinversing with peers and talking appropriately. Pt Staes that he hears voices coming from the lights and from his room at night when he goes to bed. Pt had snack at snack time and went back to rec room after snack. Pt took meds in rec room w/o complications. Pt fell aslleep in chair and was woken up to go to bed. Pt went to sleep shortly after. S/I, H/I: Denies both A/VH: Endorses AH, Denies VH Sleep: See sleep hours ADL's: Independent Group attendance: No group in the evenings Were meds taken: Yes Any med S/E: None observed or reported Mental Status Exam Appearance: Male physically fit and wearing green unit scrubs. Eye contact: Fair Behavior: Cooperative Speech: Clear soft spoken Mood: Down cast Affect: Congruent with mood Thought process: Linear Thought Content: Circumstantial Cognition: A/O x4 Insight: Fair Judgment: Fair Interventions PRNs: None Therapeutic interventions: Maintained a safe and therapeutic environment, provided clear and simple instructions, encouraged group participation, monitored behaviors and need for intervention and redirection, provided active listening and positive encouragement, handwashing r/t +MRSA NS, maintained Q 15min safety checks. Restraints/seclusion/emergency medication: N/A Justification: Patient continues to report psychotic symptoms and has significant depressive symptoms. Patient continues to require medication adjustment and titration in a safe and therapeutic m
[2021-09-09] MEDS: nicotine 21mg patch - 24 hr TD SCH (07:14)
[2021-09-09] MEDS: buPROPion SR 100mg tab PO SCH ×2 (07:15→13:15)
[2021-09-09] MEDS: divalproex sodium 500mg tablet.DR PO SCH ×2 (07:15→20:22)
[2021-09-09 07:31] VITALS: BP 122/68
--- NOTE | 2021-09-09 07:56 | NUR ---
CM/DCP Presenting Issues: Pt's thought process is clearer now and pt able to engage with clinician. Interventions: Clinician met w/pt and engaged him in pre-dcp activities. per session pt is requesting to access in-pt substance use treatment programs in [facility]. Clinician informed pt that there maybe no available beds in programs here, but clinician will check w/[facility] to see if they are a partnership county, if so clinician will ask the in-house SUDs program navigator to meet w/pt. Pt reports that his third officer Aissatou Rob says, "I can stay in [facility] if I find a program." Clinician had t/c w/Yolie Herrera @ [facility], per t/c [facility] is a Partnership [facility]. Yolie also informed clinician that when pt is ready to d/c, clinician can coordinate transportation w/[place] by contacting Charity Almaraz at [phone] or Cait at [phone]. Plan: Clinician will provide support for pt to contact [facility] and participate in the phone intake. Clinician will engage [place] in dcp activities when appropriate. Anahi Bee LCSW Addendum: 09/09/21 at 0819 by Anahi Bee SS Amended: Links added.
[2021-09-09 14:56] LABS: BASOPHILS % (AUTO) 0.7 % (0-1); EOSINOPHILS # (AUTO) 0.1 X10'3 (0-0.9); EOSINOPHILS % (AUTO) 0.9 % (0-6); HEMATOCRIT 45.5 % (42.0-52.0); HEMOGLOBIN 14.7 g/dl (14.0-17.9); LYMPHOCYTES # (AUTO) 1.8 X10'3 (1.1-4.8); LYMPHOCYTES % (AUTO) 29.7 % (21-51); MEAN CORPUSCULAR HEMOGLOBIN 23.7 PG (27.0-31.0); MEAN CORPUSCULAR HGB CONC 32.2 g/dL (33.0-36.5); MEAN CORPUSCULAR VOLUME 73.5 FL (78-98); MEAN PLATELET VOLUME 8.3 FL (7.4-10.4); MONOCYTES # (AUTO) 0.4 X10'3 (0-0.9); MONOCYTES % (AUTO) 7.4 % (2-12); NEUTROPHILS # (AUTO) 3.7 X10'3 (1.8-7.7); NEUTROPHILS % (AUTO) 61.3 % (42-75); PLATELET COUNT 246 X10'3 (140-440); RED BLOOD COUNT 6.19 X10'6 (4.70-6.10); RED CELL DISTRIBUTION WIDTH 14.4 % (11.5-14.5)
[2021-09-09 15:08] LABS: ALANINE AMINOTRANSFERASE 49 U/L (12-78); ALBUMIN 4.1 G/DL (3.4-5.0); ALBUMIN/GLOBULIN RATIO 1.1 (1.1-1.5); ALKALINE PHOSPHATASE 57 IU/L (46-116); ANION GAP 11 (8-16); ASPARTATE AMINO TRANSFERASE 18 U/L (10-37); BILIRUBIN,TOTAL 0.2 MG/DL (0.1-1.0); BLOOD UREA NITROGEN 15 MG/DL (7-18); BUN/CREATININE RATIO 10.4 (5.4-32.0); CALCIUM 9.2 MG/DL (8.5-10.1); CHLORIDE 100 MMOL/L (99-107); CREATININE 1.44 MG/DL (0.60-1.10); GLUCOSE 91 MG/DL (70-104); POTASSIUM 4.3 MMOL/L (3.5-5.1); SODIUM 138 MMOL/L (135-145); TOTAL PROTEIN 7.9 G/DL (6.4-8.2); eGFR 68 ML/MIN
[2021-09-09 15:35] LABS: % IRON SATURATION 17 % (11-46); IRON 60 UG/DL (53-167); TOTAL IRON BINDING CAPACITY 363 UG/DL (259-388)
[2021-09-09] MEDS: lurasidone 20mg tablet PO SCH (16:45)
--- NOTE | 2021-09-09 17:03 | NUR ---
Nursing Progress Note: Legal hold: 525 Client on involuntary status for GD Report received from BIPIN Aguilera with use of SBAR. Why they are here: PT admitted to [facility] today on 5150 from the emergency room for GD. Pt presents as a failure to thrive as evidenced by being consumed with his fear of getting murdered. Pt believes that someone will kill him if he leaves the hospital. Pt states it is an overwhelming feeling. Pt reports he left [facility] 5-7 days ago and has not taken his medications since. Pt has history of Schizophrenia. Pt cooperative with the admission process. Pt positive for Amphetamines and THC. Assessment What happen this shift: Patient is awake in the recreation room at the start of the shift. Drinks coffee and interacts appropriately with peers. Cooperative with 1:1 assessment and medications. Eats meals in the community room after which he watches TV in the rec room and socializes with peers. Continues to endorse auditory hallucinations that say they are going to kill him. States he feels safer here on the unit but believes he would be in danger if he left. Attends group. Spends the afternoon watching TV and socializing with select peers. S/I, H/I: Denies A/VH: Endorses AH Sleep: None noted this shift ADL's: Independent Group attendance: Yes Were meds taken: Yes Any med S/E: None observed or reported Mental Status Exam Appearance: Male physically fit, short hair, neat, clean and wearing green unit scrubs. Eye contact: Fair Behavior: Cooperative Speech: Clear, soft spoken Mood: Good. Affect: Blunted Thought process: Linear with delusions Thought Content: Meeting needs. Continues to believe that someone is trying to kill him. Cognition: A/O x4 Insight: Fair Judgment: Fair Interventions PRNs: None Therapeutic interventions: Maintained a safe and therapeutic environment, provided clear and simple instructions, encouraged group participation, monitored behaviors and need for intervention and redirection, provided active listening and positive encouragement, handwashing r/t +MRSA NS, maintained Q 15min safety checks. Restraints/seclusion/emergency medication: N/A Justification: Patient continues to report psychotic symptoms and has significant depressive symptoms. Patient continues to require medication adjustment and titration in a safe and therapeutic environment.
[2021-09-09 19:34] VITALS: BP 132/79
[2021-09-09] MEDS: traZODone 50mg tablet PO SCH (20:22)
[2021-09-09] MEDS: PALIPERIDONE 3 MG TAB.ER.24 PO SCH (20:22)
--- NOTE | 2021-09-10 01:03 | NUR ---
Nursing Progress Note: Legal hold: 5250 Client on involuntary status for GD Report received from ALEX Ruby with use of SBAR. Why they are here: PT admitted to [facility] today on 5150 from the emergency room for GD. Pt presents as a failure to thrive as evidenced by being consumed with his fear of getting murdered. Pt believes that someone will kill him if he leaves the hospital. Pt states it is an overwhelming feeling. Pt reports he left [facility] 5-7 days ago and has not taken his medications since. Pt has history of Schizophrenia. Pt cooperative with the admission process. Pt positive for Amphetamines and THC. Assessment What happen this shift: Pt in Rec room with cohorts at shift change watching TV. Pt appropriately joking with other patients. Patient went to community room and played [employer] and [employer] with other patients, and later went back to watching [employer] on TV. Patient reports still hearing voices at bedtime. Pt got up for snacks at snack time. Pt took medications w/o complications. Patient sat in rec room with cohorts till rec room closed watching television. S/I, H/I: Denies A/VH: Endorses AH Sleep: See sleep hours ADL's: Independent Group attendance: No group in the evenings Were meds taken: Yes Any med S/E: None observed or reported Mental Status Exam Appearance: Male physically fit, short hair, neat, clean and wearing green unit scrubs. Eye contact: Fair Behavior: Cooperative Speech: Clear, soft spoken Mood: Good. Affect: Broad Thought process: being social with peers, relaxing Thought Content: Meeting needs. Continues to believe that someone is trying to kill him. Cognition: A/O x4 Insight: Fair Judgment: Fair Interventions PRNs: None Therapeutic interventions: Maintained a safe and therapeutic environment, provided clear and simple instructions, encouraged group participation, monitored behaviors and need for intervention and redirection, provided active listening and positive encouragement, handwashing r/t +MRSA NS, maintained Q 15min safety checks. Restraints/seclusion/emergency medication: N/A Justification: Patient continues to report psychotic symptoms and has significant depressive symptoms. Patient continues to require medication adjustment and titration in a safe and therapeutic environment.
[2021-09-10] MEDS: nicotine 21mg patch - 24 hr TD SCH (07:05)
[2021-09-10] MEDS: buPROPion SR 100mg tab PO SCH ×2 (07:05→13:23)
[2021-09-10] MEDS: divalproex sodium 500mg tablet.DR PO SCH ×2 (07:05→20:17)
[2021-09-10 07:32] VITALS: BP 108/72
--- NOTE | 2021-09-10 11:34 | NUR ---
Met with patient in regards to substance use and to see if patient wanted resources for treatment options. Patient would like to go to treatment. I gave patient [facility] number so patient could start the process. I also gave patient my card if he had any questions.
[2021-09-10] MEDS: lurasidone 20mg tablet PO SCH (16:50)
--- NOTE | 2021-09-10 17:22 | NUR ---
Nursing Progress Note: Legal hold: 5250 Client on involuntary status for GD Report received from BIPIN Ramirez with use of SBAR. Why they are here: PT admitted to [facility] today on 5150 from the emergency room for GD. Pt presents as a failure to thrive as evidenced by being consumed with his fear of getting murdered. Pt believes that someone will kill him if he leaves the hospital. Pt states it is an overwhelming feeling. Pt reports he left [facility] 5-7 days ago and has not taken his medications since. Pt has history of Schizophrenia. Pt cooperative with the admission process. Pt positive for Amphetamines and THC. Assessment What happen this shift: Awake in the rec room at the start of the shift. Drinks coffee and watches TV prior to breakfast, interacting appropriately. Cooperative with 1:1 assessment and medications. Endorses AH of voices telling him to leave the hospital so they can kill him. Patient states he feels safe here on the unit. Eats breakfast in the community room then continues watching TV in the rec room. After lunch the patient plays games in the community room and socializes with select peers. Later in the afternoon he watches a movie in the rec room. S/I, H/I: Denies A/VH: Endorses AH Sleep: None noted this shift. ADL's: Independent Group attendance: No Were meds taken: Yes Any med S/E: None observed or reported Mental Status Exam Appearance: Male physically fit, short hair, neat, clean and wearing green unit scrubs. Eye contact: Fair Behavior: Cooperative Speech: Clear, soft spoken Mood: Ok. Affect: Blunted Thought process: Linear Thought Content: Meeting needs. Continues to believe that someone is trying to kill him. Cognition: A/O x4 Insight: Fair Judgment: Fair Interventions PRNs: None Therapeutic interventions: Maintained a safe and therapeutic environment, provided clear and simple instructions, encouraged group participation, monitored behaviors and need for intervention and redirection, provided active listening and positive encouragement, handwashing r/t +MRSA NS, maintained Q 15min safety checks. Restraints/seclusion/emergency medication: N/A Justification: Patient continues to report psychotic symptoms and has significant depressive symptoms. Patient continues to require medication adjustment and titration in a safe and therapeutic environment.
[2021-09-10 19:00] VITALS: BP 126/68
[2021-09-10] MEDS: PALIPERIDONE 3 MG TAB.ER.24 PO SCH (20:17)
[2021-09-10] MEDS: traZODone 50mg tablet PO SCH (20:17)
--- NOTE | 2021-09-10 22:53 | NUR ---
5150 NOTE: REASON FOR ADMIT: "Chris presented as a failure to thrive AEB being consumed with his fear of getting murdered. Chris reported that he has a history of schizophrenia. Has been off his medications for 5 to 6 days and was actively paranoid."
--- NOTE | 2021-09-11 01:59 | NUR ---
Nursing Progress Note: Legal hold: 5250 Client on involuntary status for GD Report received from ALEX Ruby with use of SBAR. Why they are here: "Chris presented as a failure to thrive AEB being consumed with his fear of getting murdered. Chris reported that he has a history of schizophrenia. Has been off his medications for 5 to 6 days and was actively paranoid." Assessment What happen this shift: Patient social and watching TV with peers in the recreation room at the beginning of shift. Pleasant and cooperative with care; compliant with medication. Nicotine patch removed/discarded by lead technical writer. Patient denies SI, HI, A/VH this shift; does not appear to be responding to IS and no apparent delusions reported. Patient participated in HS snack and continued to watch TV with peers prior to bed; observed sleeping and does not appear to be having difficulty. S/I, H/I: Denies A/VH: Denies Sleep: Refer to sleep assessment ADL's: Independent Group attendance: NA Were meds taken: Yes Any med S/E: None observed or reported Mental Status Exam Appearance: Neat and appropriately dressed for the unit Eye contact: Good Behavior: Pleasant and cooperative, watching TV/social with peers Speech: Clear, audible, regular rate/rhythm Mood: "Good" Affect: Blunted Thought process: Linear Thought Content: Meeting needs Cognition: A/O x4 Insight: Fair Judgment: Fair Interventions PRNs: None Therapeutic interventions: Maintained a safe and therapeutic environment, provided clear and simple instructions, encouraged group participation, monitored behaviors and need for intervention and redirection, provided active listening and positive encouragement, handwashing r/t +MRSA NS, maintained Q 15min safety checks. Restraints/seclusion/emergency medication: NA Justification: Patient continues to report psychotic symptoms and has significant depressive symptoms. Patient continues to require medication adjustment and titration in a safe and therapeutic environment.
[2021-09-11 08:00] VITALS: BP 114/68
[2021-09-11] MEDS: divalproex sodium 500mg tablet.DR PO SCH ×2 (08:55→20:17)
[2021-09-11] MEDS: buPROPion SR 100mg tab PO SCH ×2 (08:55→14:24)
[2021-09-11] MEDS: nicotine 21mg patch - 24 hr TD SCH (08:58)
[2021-09-11 09:51] LABS: HBSAG SCREEN Negative (Negative); HEP A AB, IGM Negative (Negative); HEPATITIS C ANTIBODY <0.1 s/co ratio (0.0-0.9)
--- NOTE | 2021-09-11 14:31 | NUR ---
Nursing Progress Note: Jamieramona WeldonChanda Legal hold: 5250 Client on involuntary status for GD Report received from Malorie Blunt RN with use of SBAR Why they are here: PT admitted to [facility] today on 5150 from the emergency room for GD. Pt presents as a failure to thrive as evidenced by being consumed with his fear of getting murdered. Pt believes that someone will kill him if he leaves the hospital. Pt states it is an overwhelming feeling. Pt reports he left [facility] 5-7 days ago and has not taken his medications since. Pt has history of Schizophrenia. Pt cooperative with the admission process. Pt positive for Amphetamines and THC. Assessment What happen this shift: Patient received awake in his room, compliant with medication and 1:1 assessment completed. Pt. denies SI, HI. Pt continues to endorse auditory hallucinations telling him someone is going to hurt him. Pt states they have decreased in intensity since admission and remains visible on the unit, watching television and interacting with peers. S/I, H/I: Denies both A/VH: Endorses AH, Denies VH Sleep: 7.75 hrs per NOC shift ADL's: Independent Group attendance: Yes Were meds taken: Yes Any med S/E: None observed or reported Mental Status Exam Appearance: Male physically fit and wearing green unit scrubs. Eye contact: Fair Behavior: Cooperative Speech: Clear soft spoken Mood: Down cast Affect: Congruent with mood Thought process: Linear Thought Content: Circumstantial Cognition: A/O x4 Insight: Fair Judgment: Fair Interventions PRNs: None Therapeutic interventions: Maintained a safe and therapeutic environment, provided clear and simple instructions, encouraged group participation, monitored behaviors and need for intervention and redirection, provided active listening and positive encouragement, handwashing r/t +MRSA NS, maintained Q 15min safety checks. Restraints/seclusion/emergency medication: N/A Justification: Patient continues to report psychotic symptoms and has significant depressive symptoms. Patient continues to require medication adjustment and titration in a safe and therapeutic m
[2021-09-11] MEDS: lurasidone 20mg tablet PO SCH (18:09)
[2021-09-11 19:37] VITALS: BP 122/67
[2021-09-11] MEDS: PALIPERIDONE 3 MG TAB.ER.24 PO SCH (20:17)
[2021-09-11] MEDS: traZODone 50mg tablet PO SCH (20:18)
--- NOTE | 2021-09-12 04:14 | NUR ---
Nursing Progress Note: Legal hold: 5250 Client on involuntary status for GD Report received from ALEX Ruby with use of SBAR. Why they are here: "Chris presented as a failure to thrive AEB being consumed with his fear of getting murdered. Chris reported that he has a history of schizophrenia. Has been off his medications for 5 to 6 days and was actively paranoid." Assessment What happen this shift: Patient watching TV in the community room with peers at the beginning of shift. Pleasant and cooperative with care; compliant with medication. Nicotine patch removed/discarded by law writer. He denies SI, HI, A/VH; does not appear to be responding to IS and no apparent delusions reported. Patient ate HS snack and continued to watch TV with peers prior to retiring to bed; observed sleeping and does not appear to be having difficulty. S/I, H/I: Denies A/VH: Denies Sleep: Refer to sleep assessment ADL's: Independent Group attendance: NA Were meds taken: Yes Any med S/E: None observed or reported Mental Status Exam Appearance: Neat and appropriately dressed for the unit Eye contact: Good Behavior: Pleasant and cooperative, watching TV/social with peers Speech: Clear, audible, regular rate/rhythm Mood: "Good" Affect: Congruent Thought process: Linear Thought Content: Meeting needs Cognition: A/O x4 Insight: Fair Judgment: Fair Interventions PRNs: None Therapeutic interventions: Maintained a safe and therapeutic environment, provided clear and simple instructions, encouraged group participation, monitored behaviors and need for intervention and redirection, provided active listening and positive encouragement, handwashing r/t +MRSA NS, maintained Q 15min safety checks. Restraints/seclusion/emergency medication: NA Justification: Patient continues to report psychotic symptoms and has significant depressive symptoms. Patient continues to require medication adjustment and titration in a safe and therapeutic environment.
[2021-09-12 07:10] VITALS: BP 112/65
[2021-09-12] MEDS: buPROPion SR 100mg tab PO SCH ×2 (08:22→13:56)
[2021-09-12] MEDS: divalproex sodium 500mg tablet.DR PO SCH ×2 (08:22→20:23)
[2021-09-12] MEDS: nicotine 21mg patch - 24 hr TD SCH (08:23)
[2021-09-12] MEDS: NICOTINE POLACRILEX 2 MG LOZENGE BC PRN (10:11)
--- NOTE | 2021-09-12 17:22 | NUR ---
Nursing Progress Note: Legal hold: 5250 Client on involuntary status for GD Report received from Malorie Blunt RN with use of SBAR Why they are here: PT admitted to [facility] today on 5150 from the emergency room for GD. Pt presents as a failure to thrive as evidenced by being consumed with his fear of getting murdered. Pt believes that someone will kill him if he leaves the hospital. Pt states it is an overwhelming feeling. Pt reports he left [facility] 5-7 days ago and has not taken his medications since. Pt has history of Schizophrenia. Pt cooperative with the admission process. Pt positive for Amphetamines and THC. Assessment What happened this shift: Received pt. awake in his room at shift change. Patient is cooperative and takes medications without incident. Patient reports that he continues to hear A/H, but voices are lessening. Patient was observed playing cards with his roommate. Patient has been watching football games the rest of the shift. S/I, H/I: Denies both A/VH: Endorses AH, Denies VH Sleep: 7.0 hrs per NOC shift ADL's: Independent Group attendance: NA Were meds taken: Yes Any med S/E: None observed or reported Mental Status Exam Appearance: Black male dressed in green unit attire. Eye contact: Fair Behavior: Cooperative Speech: Clear soft spoken Mood: Good. Affect: Linear. Thought process: Linear Thought Content: Circumstantial Cognition: A/O x4 Insight: Fair Judgment: Fair Interventions PRNs: None Therapeutic interventions: Maintained a safe and therapeutic environment, provided clear and simple instructions, encouraged group participation, monitored behaviors and need for intervention and redirection, provided active listening and positive encouragement, handwashing r/t +MRSA NS, maintained Q 15min safety checks. Restraints/seclusion/emergency medication: N/A Justification: Patient continues to report psychotic symptoms and has significant depressive symptoms. Patient continues to require medication adjustment and titration in a safe and therapeutic environment.
[2021-09-12] MEDS: lurasidone 20mg tablet PO SCH (17:42)
[2021-09-12 19:07] VITALS: BP 120/72
[2021-09-12] MEDS: traZODone 50mg tablet PO SCH (20:23)
[2021-09-12] MEDS: PALIPERIDONE 3 MG TAB.ER.24 PO SCH (20:23)
[2021-09-12] MEDS: acetaminophen 325mg tablet PO PRN (20:26)
--- NOTE | 2021-09-13 04:35 | NUR ---
Nursing Progress Note: Legal hold: 5250 Client on involuntary status for GD Report received from ALEX Mena with use of SBAR. Why they are here: "Chris presented as a failure to thrive AEB being consumed with his fear of getting murdered. Chris reported that he has a history of schizophrenia. Has been off his medications for 5 to 6 days and was actively paranoid." Assessment What happen this shift: Patient watching TV with peers in the recreation room at the beginning of shift. Pleasant and cooperative with care; compliant with medication. Nicotine patch removed/discarded by director underwriter sales. PRN Tylenol for a BARBOZA provided. Patient denies SI, HI, A/VH; does not appear to be responding to IS an no apparent delusions reported. Patient participated in HS snack prior to bed; observed sleeping and does not appear to be having difficulty. S/I, H/I: Denies A/VH: Denies Sleep: Refer to sleep assessment ADL's: Independent Group attendance: NA Were meds taken: Yes Any med S/E: None observed or reported Mental Status Exam Appearance: Neat and appropriately dressed for the unit Eye contact: Good Behavior: Pleasant and cooperative, social Speech: Clear, audible, regular rate/rhythm Mood: Good Affect: Congruent Thought process: Linear Thought Content: Meeting needs Cognition: A/O x4 Insight: Fair Judgment: Fair Interventions PRNs: Tylenol Therapeutic interventions: Maintained a safe and therapeutic environment, provided clear and simple instructions, encouraged group participation, monitored behaviors and need for intervention and redirection, provided active listening and positive encouragement, handwashing r/t +MRSA NS, maintained Q 15min safety checks. Restraints/seclusion/emergency medication: NA Justification: Patient continues to report psychotic symptoms and has significant depressive symptoms. Patient continues to require medication adjustment and titration in a safe and therapeutic environment.
[2021-09-13] MEDS: divalproex sodium 500mg tablet.DR PO SCH ×2 (07:44→20:28)
[2021-09-13] MEDS: buPROPion SR 100mg tab PO SCH ×2 (07:44→13:23)
[2021-09-13] MEDS: nicotine 21mg patch - 24 hr TD SCH (07:45)
[2021-09-13 08:00] VITALS: BP 114/75
--- NOTE | 2021-09-13 12:28 | NUR ---
Nursing Progress Note: Legal hold: 5250 Client on involuntary status for GD Report received from nurse with use of SBAR: Rajesh RN Why are they here: "Chris presented as a failure to thrive AEB being consumed with his fear of getting murdered. Chris reported that he has a history of schizophrenia. Has been off his medications for 5 to 6 days and was actively paranoid." Assessment What has happened this shift: Received pt. awake and up on the unit at the beginning of the shift, he was reminded by staff that he must have a mask on when out of his room and was compliant. Pt. requested to take a shower, and afterwards was sitting up in the Group Room watching TV. This keno writer introduced self and established rapport. Pt. presents as cooperative, guarded and slightly anxious. He denies any S/I, H/I, or V/BARBOZA. However admits to ongoing A/BARBOZA and paranoid delusions that others want to hurt him which, "Come and go." When questioned by this keno writer regarding the content of his A/BARBOZA, pt. states, "If I go home they are going to kill me." Pt. remains guarded throughout the conversation, and responds to closed-ended questions only with a minimal response. Pt. remains up throughout the day in the Group and Recreation Rooms watching TV and interacting appropriately with others. He is compliant with wearing a mask, V/S are WNL, and no s/s of cold, fatigue, or headache exhibited. Pt. does c/o dry feet, and lotion was provided. S/I, H/I: Denies A/VH: Ongoing A/BARBOZA, states, "If I go home they are going to kill me." Sleep: Sleep hours are 7.5 ADL's: Independent Group attendance: N/A Were meds taken: Yes Any med S/E: None Mental Status Exam Appearance: Neat and appropriately dressed Eye contact: Fair Behavior: Cooperative, guarded, and anxious Speech: Paucity of verbal output and soft. Responds to closed-ended questions Mood: Guarded and slightly anxious Affect: Blunted Thought process: Poverty to thought with possible thought blocking Thought Content: Ongoing A/BARBOZA and paranoid delusions Cognition: A&O X4 Insight: Poor Judgment: Poor Interventions PRN's used: None Therapeutic interventions: Introduced self and established rapport, maintained a safe and therapeutic environment, ensured contact for safety, provided clear and simple instructions, attempted to orient to reality, monitored V/S and physical adverse s/s, and maintained Q 15min safety checks. Restraints/seclusion/emergency medication: N/A Justification of Continued Inpatient Treatment: Per Dr. Marrero, pt. continues to require a safe and supportive environment. Discharge will be to a Recovery program.
[2021-09-13] MEDS: lurasidone 20mg tablet PO SCH (17:46)
[2021-09-13 19:00] VITALS: BP 107/67
[2021-09-13] MEDS: PALIPERIDONE 3 MG TAB.ER.24 PO SCH (20:28)
[2021-09-13] MEDS: traZODone 50mg tablet PO SCH (20:28)
--- NOTE | 2021-09-14 01:26 | NUR ---
Nursing Progress Note: Legal hold: VOL Client on voluntary status Report received from ALEX Ruby with use of SBAR. Why they are here: "Chris presented as a failure to thrive AEB being consumed with his fear of getting murdered. Chris reported that he has a history of schizophrenia. Has been off his medications for 5 to 6 days and was actively paranoid." Assessment What happen this shift: Patient watching football with peers at the beginning of shift. Pleasant and cooperative with care; compliant with medication. Nicotine patch removed/discarded by senior underwriter. Patient denies SI, HI, A/VH; does not appear to be responding to IS and no apparent delusions reported. Patient participated in HS snack prior to bed; observed sleeping and does not appear to be having difficulty. S/I, H/I: Denies A/VH: Denies Sleep: Refer to sleep assessment ADL's: Independent Group attendance: NA Were meds taken: Yes Any med S/E: None observed or reported Mental Status Exam Appearance: Neat and appropriately dressed for the unit Eye contact: Good Behavior: Pleasant and cooperative, social Speech: Clear, audible, regular rate/rhythm Mood: Good Affect: Congruent Thought process: Linear Thought Content: Meeting needs Cognition: A/O x4 Insight: Fair Judgment: Fair Interventions PRNs: None Therapeutic interventions: Maintained a safe and therapeutic environment, provided clear and simple instructions, encouraged group participation, monitored behaviors and need for intervention and redirection, provided active listening and positive encouragement, handwashing r/t +MRSA NS, maintained Q 15min safety checks. Restraints/seclusion/emergency medication: NA Justification: Patient continues to report psychotic symptoms and has significant depressive symptoms. Patient continues to require medication adjustment and titration in a safe and therapeutic environment.
[2021-09-14 07:26] VITALS: BP 103/61
[2021-09-14] MEDS: divalproex sodium 500mg tablet.DR PO SCH ×2 (07:26→20:08)
[2021-09-14] MEDS: buPROPion SR 100mg tab PO SCH ×2 (07:27→13:13)
[2021-09-14] MEDS: nicotine 21mg patch - 24 hr TD SCH (07:27)
--- NOTE | 2021-09-14 11:00 | NUR ---
Nursing Progress Note: Legal hold: Voluntary Client on voluntary status for GD Report received from nurse with use of SBAR: AELX Aguilera Why are they here: "Chris presented as a failure to thrive AEB being consumed with his fear of getting murdered. Chris reported that he has a history of schizophrenia. Has been off his medications for 5 to 6 days and was actively paranoid." Assessment What has happened this shift: Received pt. awake and up on the unit at the beginning of the shift, he was reminded by staff that he must have a mask on when out of his room and was compliant. Pt. requested to take a shower, and afterwards was sitting up in the Group Room watching TV. This junior technical writer introduced self and established rapport. Pt. presents as cooperative, guarded and slightly anxious. He denies any S/I, H/I, or V/BARBOZA. However admits to ongoing A/BARBOZA and paranoid delusions that others want to hurt him which, "Come and go." When questioned by this junior technical writer regarding the content of his A/BARBOZA, pt. states, "If I go home they are going to kill me." Pt. remains guarded throughout the conversation, and responds to closed-ended questions only with a minimal response. Pt. remains up throughout the day in the Group and Recreation Rooms watching TV and interacting appropriately with others. He is compliant with wearing a mask, V/S are WNL, and no s/s of cold, fatigue, or headache exhibited. Pt. does c/o dry feet, and lotion was provided. S/I, H/I: Denies A/VH: Ongoing A/BARBOZA, states, "If I go home they are going to kill me." Sleep: Sleep hours are 7.5 ADL's: Independent Group attendance: N/A Were meds taken: Yes Any med S/E: None Mental Status Exam Appearance: Neat and appropriately dressed Eye contact: Fair Behavior: Cooperative, guarded, and anxious Speech: Paucity of verbal output and soft. Responds to closed-ended questions Mood: Guarded and slightly anxious Affect: Blunted Thought process: Poverty to thought with possible thought blocking Thought Content: Ongoing A/BARBOZA and paranoid delusions Cognition: A&O X4 Insight: Poor Judgment: Poor Interventions PRN's used: None Therapeutic interventions: Introduced self and established rapport, maintained a safe and therapeutic environment, ensured contact for safety, provided clear and simple instructions, attempted to orient to reality, monitored V/S and physical adverse s/s, and maintained Q 15min safety checks. Restraints/seclusion/emergency medication: N/A Justification of Continued Inpatient Treatment: Per Dr. Marrero, pt. continues to require a safe and supportive environment. Discharge will be to a Recovery program.
--- NOTE | 2021-09-14 11:13 | NUR ---
Disregard Previous Note
--- NOTE | 2021-09-14 11:29 | NUR ---
Nursing Progress Note: Legal hold: Voluntary Client on voluntary status for GD Report received from nurse with use of SBAR: ALEX Aguilera Why are they here: "Chris presented as a failure to thrive AEB being consumed with his fear of getting murdered. Chris reported that he has a history of schizophrenia. Has been off his medications for 5 to 6 days and was actively paranoid." Assessment What has happened this shift: Received pt. sleeping in bed at the beginning of the shift, he awoke and ate breakfast in his room as is the current unit protocol. Pt. appropriately greeted this designer/writer and his affect continues to be blunted, however he does exhibit brightening. Pt. smiles and even laughs with this designer/writer at intervals. However, he continues to report some anxiety, and when questioned by this designer/writer regarding the cause of his anxiety, pt. stated, "I don't know where I am going after this." He also reports some ongoing A/BARBOZA which continue to say they are going to hurt him, however pt. admits, "They are only on and off now." Pt. also reports ongoing paranoid delusions that others want to hurt him, but these have decreased as well. Pt. remains guarded throughout the conversation, and responds to closed-ended questions only with a minimal response. Pt. remains up throughout the day in the Recreation Rooms watching TV and interacting appropriately with others. He remains compliant with wearing a mask, V/S are WNL, and no s/s of cold, fatigue, or headache exhibited. Will continue to monitor. S/I, H/I: Denies A/VH: Ongoing A/BARBOZA which are "On and off now." Sleep: Sleep hours are 7.5 ADL's: Independent Group attendance: N/A Were meds taken: Yes Any med S/E: None Mental Status Exam Appearance: Neat and appropriately dressed Eye contact: Fair Behavior: Cooperative, guarded, and anxious Speech: Paucity of verbal output and soft. Responds to closed-ended questions Mood: Guarded and slightly anxious Affect: Blunted with brightening Thought process: Poverty to thought with possible thought blocking Thought Content: Ongoing A/BARBOZA and paranoid delusions Cognition: A&O X4 Insight: Poor Judgment: Fair Interventions PRN's used: None Therapeutic interventions: Maintained a safe and therapeutic environment, ensured contact for safety, provided clear and simple instructions, attempted to orient to reality, monitored V/S and physical adverse s/s, provided active listening and positive encouragement, and maintained Q 15min safety checks. Restraints/seclusion/emergency medication: N/A Justification of Continued Inpatient Treatment: Per Owen PA, pt. continues to require medication adjustments and a safe and supportive environment.
--- NOTE | 2021-09-14 13:53 | NUR ---
DCP Presenting Issues: Pt is a parolee from [facility], pt was initially placed at [facility] by the [facility] had placed pt @ [facility] for NELL treatment. However, pt was asked to leave the program after testing positive. Per Robbie lafleur, pt will need to return to [facility] and check in with his health insurance sales agent there if he's unable to get admitted to a NELL treatment program in [facility]. Pt was provided w/contact info for [facility] and instructed to contact [facility] to access referrals to in-patient substance use programs. Pt had contacted [facility] was referred to [facility] but reports that he has not heard back from [facility] yet. Interventions: Clinician met w/pt and utilized [place] strategies to assess pt in re to pt's readiness for change; pt appears to be in the early phase of contemplation as pt acknowledged that he has a substance use issue and expresses a desire for treatment. However, pt continues to be passive w/re to accessing inpatient substance use services and needs direct prompting from clinician before pt will make phone call. Clinician had t/c w/[facility] in [place] to f/u on pt's request for inpatient services, per t/c clinician was informed that pt was told that there was a 3-4 week waitlist. Clinician discussed this w/pt and suggested that pt call [facility] again and request for referral to the [facility], pt expressed desire to wait and get in @ [facility]. Clinician informed pt that pt may not be able to stay in the hospital and wait for that. Pt agreed to call [facility] again and request for referral to other programs. Plan: Clinician will check back w/pt @ the end of day re the outcome of his t/c w/[facility]. Anahi Bee LCSW Addendum: 09/14/21 at 1454 by Anahi Bee SS Amended: Links added.
[2021-09-14] MEDS: lurasidone 20mg tablet PO SCH (17:58)
[2021-09-14 18:57] VITALS: BP 125/68
[2021-09-14 19:00] VITALS: BP 125/68
[2021-09-14] MEDS: traZODone 50mg tablet PO SCH (20:08)
[2021-09-14] MEDS: PALIPERIDONE 3 MG TAB.ER.24 PO SCH (20:08)
--- NOTE | 2021-09-15 02:29 | NUR ---
Nursing Progress Note: Legal hold: VOL Client on voluntary status Report received from ALEX Ruby with use of SBAR. Why they are here: "Chris presented as a failure to thrive AEB being consumed with his fear of getting murdered. Chris reported that he has a history of schizophrenia. Has been off his medications for 5 to 6 days and was actively paranoid." Assessment What happen this shift: Patient was in the rec room watching movies. Patient mostly keeps to himself. He continues to be anxious about where he goes from here. Patient knows his time is coming to an end here, and he needs to get re-engaged with the outside. He continues to need prompting to do things that will move him forward. Patient denies MH symptoms, but still has a paranoid belief that he will be killed if he leaves here. He is cooperative and polite with staff. Patient went to bed right after HS meds. S/I, H/I: Denies A/VH: Denies Sleep: Refer to sleep assessment ADL's: Independent Group attendance: NA Were meds taken: Yes Any med S/E: None observed or reported Mental Status Exam Appearance: Neat and appropriately dressed for the unit Eye contact: Good Behavior: Pleasant and cooperative, social, guarded Speech: Clear, audible, regular rate/rhythm Mood: Good Affect: Congruent Thought process: Linear Thought Content: Meeting needs Cognition: A/O x4 Insight: Fair Judgment: Fair Interventions PRNs: None Therapeutic interventions: Maintained a safe and therapeutic environment, provided clear and simple instructions, encouraged group participation, monitored behaviors and need for intervention and redirection, provided active listening and positive encouragement, handwashing r/t +MRSA NS, maintained Q 15min safety checks. Restraints/seclusion/emergency medication: NA Justification: Patient continues to report psychotic symptoms and has significant depressive symptoms. Patient continues to require medication adjustment and titration in a safe and therapeutic environment.
[2021-09-15 07:06] VITALS: BP 118/69
[2021-09-15] MEDS: buPROPion SR 100mg tab PO SCH ×2 (08:40→13:22)
[2021-09-15] MEDS: divalproex sodium 500mg tablet.DR PO SCH ×2 (08:40→20:30)
[2021-09-15] MEDS: nicotine 21mg patch - 24 hr TD SCH (08:42)
--- NOTE | 2021-09-15 09:19 | NUR ---
Reassessment. Pt Currently on a regular diet and eating well with mostly 100% PO intake throughout LOS, also noted to consume snacks. LBM 09/12. No nutrition intervention implemented at this time, will continue to monitor. Recs: 1. Continue Regular diet as tolerated 2. Bowel care per rx 3. Weekly wts Addendum: 09/15/21 at [address] Amended: Links added.
--- NOTE | 2021-09-15 13:30 | NUR ---
Nursing Progress Note: Legal hold: Voluntary Client on voluntary status for GD Report received from nurse with use of SBAR: ALEX Aguilera Why are they here: "Chris presented as a failure to thrive AEB being consumed with his fear of getting murdered. Chris reported that he has a history of schizophrenia. Has been off his medications for 5 to 6 days and was actively paranoid." Assessment What has happened this shift: Received up awake sitting in a chair in his darkened room at the beginning of the shift. When the Recreation Room was opened he retreated there to watch TV with others as is his routine. Pt. remained up throughout the morning and napped in the afternoon. 1:1 completed at bedside, and pt. remains guarded with conversation and responds to closed-ended question with minimal responses. Pt. continues to deny any S/I, H/I, and also denies any paranoid delusions that others want to hurt him this shift. However, he reports ongoing A/BARBOZA which continue to decrease. Pt. also reports he continues to worry about discharge, and hopes to be placed in a program here instead of the [facility] where his family is located. Pt. remains up throughout the morning watching TV and interacting appropriately with others, he naps in the afternoon. He remains compliant with wearing a mask, V/S are WNL, and no s/s of cold, fatigue, or headache exhibited. Will continue to monitor. S/I, H/I: Denies A/VH: Ongoing A/BARBOZA which continue to decreases Sleep: Sleep hours are 7.25, pt. naps in the afternoon ADL's: Independent Group attendance: N/A Were meds taken: Yes Any med S/E: None Mental Status Exam Appearance: Neat and appropriately dressed Eye contact: Fair Behavior: Cooperative, guarded, and anxious Speech: Paucity of verbal output and soft. Responds to closed-ended questions Mood: Guarded and slightly anxious Affect: Blunted with brightening Thought process: Poverty to thought with possible thought blocking Thought Content: Ongoing A/BARBOZA and paranoid delusions Cognition: A&O X4 Insight: Poor Judgment: Fair Interventions PRN's used: None Therapeutic interventions: Maintained a safe and therapeutic environment, ensured contact for safety, provided clear and simple instructions, attempted to orient to reality, monitored V/S and physical adverse s/s, provided active listening and positive encouragement, and maintained Q 15min safety checks. Restraints/seclusion/emergency medication: N/A Justification of Continued Inpatient Treatment: Per LOUISE Weaver, pt. continues to require medication adjustments and a safe and supportive environment.
[2021-09-15] MEDS ORDERED: lurasidone 20mg tablet PO ONE (17:35)
[2021-09-15] MEDS ORDERED: lurasidone 60mg tablet PO SCH (17:40)
[2021-09-15] MEDS: lurasidone 20mg tablet PO SCH (17:58)
[2021-09-15] MEDS: lurasidone 60mg tablet PO SCH (17:58)
[2021-09-15 20:00] VITALS: BP 123/67
[2021-09-15] MEDS: PALIPERIDONE 3 MG TAB.ER.24 PO SCH (20:30)
[2021-09-15] MEDS: traZODone 50mg tablet PO SCH (20:30)
--- NOTE | 2021-09-16 01:57 | NUR ---
Nursing Progress Note: Legal hold: VOL Client on voluntary status Report received from ALEX Ruby with use of SBAR. Why they are here: "Chris presented as a failure to thrive AEB being consumed with his fear of getting murdered. Chris reported that he has a history of schizophrenia. Has been off his medications for 5 to 6 days and was actively paranoid." Assessment What happen this shift: Received pt watching television and interacting with peers. Pt cooperative with pm assessment and medications. Pt had a slight temperature of 99.7 Covid test was performed and pt results were positive. Pt roommate moved and pt encourage to remain in his room. Pt cooperative and a little scared, but fell asleep before the results came in. Pt has remained asleep. S/I, H/I: Denies A/VH: Denies Sleep: Refer to sleep assessment ADL's: Independent Group attendance: NA Were meds taken: Yes Any med S/E: None observed or reported Mental Status Exam Appearance: Neat and appropriately dressed for the unit Eye contact: Good Behavior: Pleasant and cooperative, social Speech: Clear, audible, regular rate/rhythm Mood: Good Affect: Congruent Thought process: Linear Thought Content: Meeting needs Cognition: A/O x4 Insight: Fair Judgment: Fair Interventions PRNs: None Therapeutic interventions: Maintained a safe and therapeutic environment, provided clear and simple instructions, encouraged group participation, monitored behaviors and need for intervention and redirection, provided active listening and positive encouragement, handwashing r/t +MRSA NS, maintained Q 15min safety checks. Restraints/seclusion/emergency medication: NA Justification: Patient continues to report psychotic symptoms and has significant depressive symptoms. Patient continues to require medication adjustment and titration in a safe and therapeutic environment.
[2021-09-16 08:00] VITALS: BP 119/55
[2021-09-16] MEDS: buPROPion SR 100mg tab PO SCH ×2 (08:32→13:29)
[2021-09-16] MEDS: divalproex sodium 500mg tablet.DR PO SCH ×2 (08:32→20:23)
[2021-09-16] MEDS: nicotine 21mg patch - 24 hr TD SCH (08:33)
[2021-09-16] MEDS ORDERED: lurasidone 20mg tablet PO SCH (17:00)
--- NOTE | 2021-09-16 17:17 | NUR ---
Nursing Progress Note: Legal hold: VOL Client on voluntary status Report received from BIPIN Mena with use of SBAR. Why they are here: "Chris presented as a failure to thrive AEB being consumed with his fear of getting murdered. Chris reported that he has a history of schizophrenia. Has been off his medications for 5 to 6 days and was actively paranoid." Assessment What happen this shift: Received patient while he was in his room sleeping in his bed. Patient awakened, and was then informed that he had a positive COVID-19 test. Patient reports Fabiola already had it once. Temp 99.7 this morning at 0700. Patient teaching done to inform patient to report signs & symptoms of any respiratory distress, change in heart rate or feeling warm/hot as if he might have a fever, discharge from cough or sinuses. Patient declined printed information on COVID-19 today. Informed patient if he changes his mind to let one of us know. Patient utilizing time in his room to play cards or sleep most of the day. Explained to patient that he needs to keep the door closed at all times, and oriented to the call light on the wall if needs assistance with anything. Temp re-check at 1425 is 98.8 oral. S/I, H/I: Denies A/VH: Denies Sleep: 8.25 hours ADL's: Independent Group attendance: No Group Meetings held today. Were meds taken: Yes, without hesitation. Any med S/E: None observed or reported Mental Status Exam Appearance: Neat and appropriately dressed for the unit in green scrubs Eye contact: Good Behavior: Pleasant and cooperative Speech: Clear, audible, regular rate/rhythm Mood: Im feeling great. Affect: Congruent Thought process: Linear Thought Content: Meeting needs Cognition: A/O x4 Insight: Fair Judgment: Fair Interventions PRNs: None Therapeutic interventions: Maintained a safe and therapeutic environment, provided clear and simple instructions, encouraged group participation, monitored behaviors and need for intervention and redirection, provided active listening and positive encouragement, handwashing r/t +MRSA NS, maintained Q 15min safety checks. Restraints/seclusion/emergency medication: NA Justification: Patient continues to report psychotic symptoms and has significant depressive symptoms. Patient continues to require medication adjustment and titration in a safe and therapeutic env
[2021-09-16] MEDS: lurasidone 20mg tablet PO SCH (18:00)
[2021-09-16] MEDS: lurasidone 60mg tablet PO SCH (18:01)
[2021-09-16 19:06] VITALS: BP 121/88
[2021-09-16] MEDS: traZODone 50mg tablet PO SCH (20:23)
[2021-09-16] MEDS: PALIPERIDONE 3 MG TAB.ER.24 PO SCH (20:23)
--- NOTE | 2021-09-17 00:05 | NUR ---
Nursing Progress Note: Legal hold: VOL Client on voluntary status Report received from ALEX Gusman with use of SBAR. Why they are here: "Chris presented as a failure to thrive AEB being consumed with his fear of getting murdered. Chris reported that he has a history of schizophrenia. Has been off his medications for 5 to 6 days and was actively paranoid." Assessment What happen this shift: Pt in room sleeping when this nurse went to check on pt. Pt woke up promptly. The patient was asked about s/s of Covid 19, pt denied any symptoms and stated that he felt great today. Pt vs taken and WNL. temp of 98.2, pt was offered books as he reported being bored and not having anything to do. Pt given two romance novels upon request. Pt denies A/V H At evening med pass patient requested snacks with medication. Patient ate snacks and took medication w/o complications. S/I, H/I: Denies A/VH: denies Sleep: see sleep hours ADL's: Independent Group attendance: No Group in evenings Were meds taken: Yes, without hesitation. Any med S/E: None observed or reported Mental Status Exam Appearance: Neat and appropriately dressed for the unit in green scrubs Eye contact: Good Behavior: Pleasant and cooperative Speech: Clear, audible, regular rate/rhythm Mood: good, bored Affect: Congruent Thought process: Linear Thought Content: Meeting needs Cognition: A/O x4 Insight: Fair Judgment: Fair Interventions PRNs: None Therapeutic interventions: Maintained a safe and therapeutic environment, provided clear and simple instructions, encouraged group participation, monitored behaviors and need for intervention and redirection, provided active listening and positive encouragement, handwashing r/t +MRSA NS, maintained Q 15min safety checks. Restraints/seclusion/emergency medication: NA Justification: Patient continues to report psychotic symptoms and has significant depressive symptoms. Patient continues to require medication adjustment and titration in a safe and therapeutic environment.
[2021-09-17] MEDS: divalproex sodium 500mg tablet.DR PO SCH ×2 (07:44→20:28)
[2021-09-17] MEDS: buPROPion SR 100mg tab PO SCH ×2 (07:44→13:44)
[2021-09-17] MEDS: nicotine 21mg patch - 24 hr TD SCH (07:45)
[2021-09-17 08:20] VITALS: BP 107/63
--- NOTE | 2021-09-17 16:46 | NUR ---
Legal hold: VOL Client on voluntary status Report received from ALEX Ramirez with use of SBAR. Why they are here: "Chris presented as a failure to thrive AEB being consumed with his fear of getting murdered. Chris reported that he has a history of schizophrenia. Has been off his medications for 5 to 6 days and was actively paranoid." Assessment What happen this shift: Received patient while he was playing solitaire in his room. COVID isolation in place. Doors closed at all times. Patient reports he is feeling good. Patient teaching regarding COVID=19. Patient Fabiola already had COVID once, so this time its not bad at all. Denies respiratory symptoms. Patient supplied with books, cards and snacks as requested. S/I, H/I: Denies A/VH: +AH/Denies VH; Patient reports I keep hearing one voice telling me that they want to kill me. Sleep: 7.50 hours ADL's: Independent Group attendance: No Group Meetings Held Today. Were meds taken: Yes, without hesitation. Any med S/E: None observed or reported Mental Status Exam Appearance: Neat and appropriately dressed for the unit in personal clothing. Eye contact: Good Behavior: Pleasant and cooperative Speech: Clear, audible, regular rate/rhythm Mood: Feeling Good. & reports boredom at times. Affect: Congruent Thought process: Linear Thought Content: Meeting needs Cognition: A/O x4 Insight: Fair Judgment: Fair Interventions PRNs: None Therapeutic interventions: Maintained a safe and therapeutic environment, provided clear and simple instructions, encouraged group participation, monitored behaviors and need for intervention and redirection, provided active listening and positive encouragement, handwashing r/t +MRSA. Maintain COVID 19 isolation in room. Discussed good hand washing techniques, importance of keeping door closed, discuss any questions patient may have regarding COVID-19 and maintain Q 15min safety checks. Restraints/seclusion/emergency medication: NA Justification: Patient continues to report psychotic symptoms and has significant depressive symptoms. Patient continues to require medication adjustment and titration in a safe and therapeutic environment.
[2021-09-17] MEDS: lurasidone 60mg tablet PO SCH (17:59)
[2021-09-17] MEDS: lurasidone 20mg tablet PO SCH (17:59)
[2021-09-17 20:00] VITALS: BP 128/84
[2021-09-17] MEDS: PALIPERIDONE 3 MG TAB.ER.24 PO SCH (20:28)
[2021-09-17] MEDS: traZODone 50mg tablet PO SCH (20:28)
--- NOTE | 2021-09-17 21:27 | NUR ---
Nursing Progress Note: Legal hold: VOL Client on voluntary status Report received from ALEX Busch with use of SBAR. Why they are here: "Chris presented as a failure to thrive AEB being consumed with his fear of getting murdered. Chris reported that he has a history of schizophrenia. Before admission he had been off his medications for 5 to 6 days and was actively paranoid." Assessment What happen this shift: Pt in room listening to head phones when this nurse went to check on pt. Patient was asked about s/s of Covid 19, pt denied any symptoms and stated that he felt great today, wanted to know when he could stop quarantining as he was feeling bored being stuck in his room, mentioned the new CDC quarantining guidelines. This sheet writer stated that he would check with the charge nurse regarding the plan for quarantining. Patient stated that he was only experiencing whispers regarding A/VH, stated they were much better and manageable. Requested snacks and took medications without incident. S/I, H/I: Denies A/VH: mild AH, no VH Sleep: see sleep hours ADL's: Independent Group attendance: No Group in evenings Were meds taken: Yes, without hesitation. Any med S/E: None observed or reported Mental Status Exam Appearance: Neat and appropriately dressed for the unit in green scrubs and white shirt Eye contact: Good Behavior: Pleasant and cooperative Speech: Clear, audible, regular rate/rhythm Mood: good, bored Affect: Congruent Thought process: Linear Thought Content: Meeting needs Cognition: A/O x4 Insight: Fair Judgment: Fair Interventions PRNs: None Therapeutic interventions: Maintained a safe and therapeutic environment, provided clear and simple instructions, group participation could not be encouraged given quarantine, monitored behaviors and need for intervention and redirection, provided active listening and positive encouragement, handwashing r/t +MRSA NS, maintained Q 15min safety checks. Restraints/seclusion/emergency medication: NA Justification: Patient continues to report psychotic symptoms and has significant depressive symptoms. Patient continues to require medication adjustment and titration in a safe and therapeutic environment.
[2021-09-18 06:50] VITALS: BP 112/64
[2021-09-18 08:00] VITALS: BP 112/64
[2021-09-18] MEDS: buPROPion SR 100mg tab PO SCH ×2 (08:17→14:08)
[2021-09-18] MEDS: divalproex sodium 500mg tablet.DR PO SCH ×2 (08:17→21:03)
[2021-09-18] MEDS: nicotine 21mg patch - 24 hr TD SCH (08:17)
--- NOTE | 2021-09-18 17:09 | NUR ---
Nursing Progress Note: Legal hold: VOL Client on voluntary status Report received from ALEX Ramirez with use of SBAR. Why they are here: "Chris presented as a failure to thrive AEB being consumed with his fear of getting murdered. Chris reported that he has a history of schizophrenia. Before admission he had been off his medications for 5 to 6 days and was actively paranoid." Assessment What happened this shift: Received patient while he was sitting up in his bed playing [employer]. Smiling, and states Im feeling better every day. Patient states I didnt realize how boring it would be without a TV, and laughs. 1:1 Patient Assessment completed. Pt reports he does hear voices that Are whispering that they are going to try and kill me, and it really makes me paranoid. Patient had headphones on, and reported I try to block the whispers, that is why I always have them on. Patient reports it helps some. Denies cough, sinus congestion, and vs are stable. Remains on COVID Isolation at this time. Dr. Tucker here to see patient. Patient reports he has nothing new going on to Dr. Tucker. S/I, H/I: Denies A/VH: Reports AH trying to kill me, no VH Sleep: 8.0 ADL's: Independent Group attendance: No Group Meetings today. Were meds taken: Yes, without hesitation. Any med S/E: None observed or reported Mental Status Exam Appearance: Neat and appropriately dressed for the unit in green scrubs and white shirt Eye contact: Good Behavior: Pleasant & Cooperative. Speech: Normal Rate & Rhythm. Mood: Smiling. c/o Boredom without a TV. Affect: Congruent Thought process: Linear Thought Content: Meeting needs Cognition: A/O x4 Insight: Fair Judgment: Fair Interventions PRNs: None Therapeutic interventions: Maintained a safe and therapeutic environment, provided clear and simple instructions, group participation could not be encouraged given quarantine, monitored behaviors and need for intervention and redirection, provided active listening and positive encouragement, handwashing r/t +MRSA NS, maintained Q 15min safety checks. Restraints/seclusion/emergency medication: NA Justification: Patient continues to report psychotic symptoms and has significant depressive symptoms. Patient continues to require medication adjustment and titration in a safe and therapeutic environment.
[2021-09-18] MEDS: lurasidone 20mg tablet PO SCH (17:53)
[2021-09-18] MEDS: lurasidone 60mg tablet PO SCH (17:53)
[2021-09-18 19:32] VITALS: BP 121/73
[2021-09-18] MEDS: PALIPERIDONE 3 MG TAB.ER.24 PO SCH (21:03)
[2021-09-18] MEDS: traZODone 50mg tablet PO SCH (21:03)
--- NOTE | 2021-09-19 02:30 | NUR ---
Nursing Progress Note: Eddie Legal hold: VOL Client on voluntary status Report received from Uzma JOHNSON with use of SBAR. Why they are here: "Chris presented as a failure to thrive AEB being consumed with his fear of getting murdered. Chris reported that he has a history of schizophrenia. Before admission he had been off his medications for 5 to 6 days and was actively paranoid." Assessment What happened this shift: Received patient sitting on his bed listening to headphones. Patient cooperative with care. States hears voices that are a whisper and that they are telling him to kill himself. Has some mild depression and anxiety but says the headphones help out by blocking some of the noise out. Pt took all HS medications without issue and had some snacks. Denies cough, sinus congestion, and body aches, sore throat and vs are stable. Remains on COVID Isolation at this time. S/I, H/I: Denies A/VH: Reports AH trying to kill me, no VH Sleep: ADL's: Independent Group attendance: No Group Meetings today. Were meds taken: Yes, without hesitation. Any med S/E: None observed or reported Mental Status Exam Appearance: Neat and appropriately dressed for the unit in green scrubs and white shirt Eye contact: Good Behavior: Pleasant & Cooperative. Speech: Normal Rate & Rhythm. Mood: Smiling. Bored Affect: Congruent Thought process: Linear Thought Content: Meeting needs Cognition: A/O x4 Insight: Fair Judgment: Fair Interventions PRNs: None Therapeutic interventions: Maintained a safe and therapeutic environment, provided clear and simple instructions, group participation could not be encouraged given quarantine, monitored behaviors and need for intervention and redirection, provided active listening and positive encouragement, handwashing r/t +MRSA NS, maintained Q 15min safety checks. Restraints/seclusion/emergency medication: NA Justification: Patient continues to report psychotic symptoms and has significant depressive symptoms. Patient continues to require medication adjustment and titration in a safe and therapeutic environm
[2021-09-19 07:30] VITALS: BP_SYST 129; BP_SYST 91; BP_DIAS 53; BP_DIAS 76
[2021-09-19] MEDS: buPROPion SR 100mg tab PO SCH ×2 (08:26→13:41)
[2021-09-19] MEDS: divalproex sodium 500mg tablet.DR PO SCH ×2 (08:26→20:34)
[2021-09-19] MEDS: nicotine 21mg patch - 24 hr TD SCH (08:28)
--- NOTE | 2021-09-19 16:32 | NUR ---
Nursing Progress Note: Legal hold: VOL Client on voluntary status Report received from ALEX Ramirez with use of SBAR. Why they are here: "Chris presented as a failure to thrive AEB being consumed with his fear of getting murdered. Chris reported that he has a history of schizophrenia. Before admission he had been off his medications for 5 to 6 days and was actively paranoid." Assessment What happened this shift: RN received pt. asleep in bed at start of shift. Pt. awoke for breakfast and took all medications. Pt. denies cough, sinus congestion, and vs are stable. Pt. remains on COVID Isolation at this time. Pt. observed listening to headphones and reading in his room. 1:1 done at bedside, pt. reports feeling anxious about being on isolation and hopes that he will be taken of isolation tomorrow. Pt. reports that he wants to go to [place] [facility] upon discharge. Pt. denies SI/HI, but reports +AH, states he hears whispering. S/I, H/I: Denies A/VH: +AH, states hearing Whispering. Sleep: 9.25 on NOC shift. Pt. naps intermittently during the day. ADL's: Independent Group attendance: No Group Meetings today. Were meds taken: Yes Any med S/E: Denies, none observed. Mental Status Exam Appearance: Neat and clean, wearing green unit scrubs. Eye contact: WNL Behavior: Pleasant & Cooperative. Reading books and listening to headphones in his room. Speech: WNL Mood: Euthymic with some anxiety Affect: Congruent with mood. Thought process: Linear but experiences AH. Thought Content: Hopeful for coming off of isolation and going to rehab. Cognition: A/O x4 Insight: Fair Judgment: Fair Interventions PRNs: None Therapeutic interventions: Maintained a safe and therapeutic environment, provided clear and simple instructions, group participation could not be encouraged given quarantine, monitored behaviors and need for intervention and redirection, provided active listening and positive encouragement, handwashing r/t +MRSA NS, maintained Q 15min safety checks. Restraints/seclusion/emergency medication: NA Justification: Patient continues to report psychotic symptoms and has significant depressive symptoms. Patient continues to require medication adjustment and titration in a safe and therapeutic environment.
[2021-09-19] MEDS: lurasidone 60mg tablet PO SCH (17:00)
[2021-09-19 19:30] VITALS: BP 123/74
[2021-09-19] MEDS: traZODone 50mg tablet PO SCH (20:34)
[2021-09-19] MEDS: PALIPERIDONE 3 MG TAB.ER.24 PO SCH (20:34)
--- NOTE | 2021-09-20 01:10 | NUR ---
Nursing Progress Note: Legal hold: VOL Client on voluntary status Report received from ALEX Gusman with use of SBAR. Why they are here: Chris presented as a failure to thrive AEB being consumed with his fear of getting murdered. Chris reported that he has a history of schizophrenia. Before admission he had been off his medications for 5 to 6 days and was actively paranoid. Assessment What happened this shift: RN received pt. laying in his bed at start of shift, listening to the game on his headphones. He is pleasant and cooperative, willingly was examined, and took all medications. He denies cough, sinus congestion, pain, or any active covid symptoms. His vitals are stable. He remains on COVID Isolation at this time. 1:1 done at bedside, He denies SI/HI, but reports +AH, that he hears whispers. The whispers are saying that someone will harm him. S/I, H/I: Denies A/VH: +AH, states hearing Whispers that someone is going to harm me." Sleep: Asleep at this time ADL's: Independent Group attendance: N/A Were meds taken: Yes Any med S/E: Denies, none observed. Mental Status Exam Appearance: Neat and clean, wearing street clothes. Eye contact: WNL Behavior: Pleasant & Cooperative. Listening to headphones in his room. Speech: WNL Mood: "good" Affect: Congruent Thought process: Linear but experiences AH. Thought Content: Listening to the game and rooting for [place] Cognition: A/O x4 Insight: Fair Judgment: Fair Interventions: 1:1 care PRNs: None Therapeutic interventions: Maintained a safe and therapeutic environment, medications, juice per his request, and clear and simple instructions. He remains under covid quarantine, monitoring behaviors and need for intervention/redirection, providing active listening and positive encouragement. Q 15 min safety checks in effect. Restraints/seclusion/emergency medication: N/A Justification: Patient continues to report psychotic symptoms and has significant depressive symptoms. Patient continues to require medication adjustment and titration in a safe and therapeutic environment.
[2021-09-20 07:13] VITALS: BP 128/78
[2021-09-20] MEDS: nicotine 21mg patch - 24 hr TD SCH (07:39)
[2021-09-20] MEDS: buPROPion SR 100mg tab PO SCH ×2 (07:40→13:29)
[2021-09-20] MEDS: divalproex sodium 500mg tablet.DR PO SCH ×2 (07:40→20:03)
[2021-09-20 16:30] VITALS: BP 123/80
--- NOTE | 2021-09-20 16:34 | NUR ---
Nursing Progress Note: Chris Khanna Legal hold: 5250 Client on involuntary status for GD Report received from ALEX Sprague with use of SBAR Why they are here: Chris presented as a failure to thrive AEB being consumed with his fear of getting murdered. Chris reported that he has a history of schizophrenia. Has been off his medications for 5 to 6 days and was actively paranoid." Assessment What happen this shift: Patient received awake sitting in his room. Pt. received his medication and 1:1 assessment completed at the bedside. Pt. continues to be monitored r/t COVID 219 infection, denies symptoms, lungs CTA bilateral, SPO2 93% RA, VSS. Pt. reports he was admitted d/t hearing voices and currently denies S/I, H/I, and endorses A/H I hear a lot of whispering voices telling me Ill be killed he denies VH. Pt. reports his voices have gotten better with the medicine, he presents as guarded during assessment. Current plans are to discharge to the [facility]. Pt. spent the shift in his room d/t infection control protocols. He was awake most of the day laying in bed reading books and listening to head phones. Pt. has a good appetite and consuming a lot of fluids. Slept intermittently this afternoon. He continues to deny and s/sx of COVID 19. . S/I, H/I: Denies both A/VH: Endorses AH, Denies VH Sleep: 7.25 hrs per NOC shift, one nap ADL's: Independent Group attendance: No Were meds taken: Yes Any med S/E: None observed or reported Mental Status Exam Appearance: Male physically fit and wearing green unit scrubs. Eye contact: Fair Behavior: Cooperative Speech: Clear and soft spoken Mood: Down cast Affect: Congruent with mood Thought process: Linear Thought Content: Circumstantial Cognition: A/O x4 Insight: Fair Judgment: Fair Interventions PRNs: None Therapeutic interventions: Maintained a safe and therapeutic environment, provided clear and simple instructions, encouraged group participation, monitored behaviors and need for intervention and redirection, provided active listening and positive encouragement, handwashing r/t +MRSA NS, maintained Q 15min safety checks. Restraints/seclusion/emergency medication: N/A Justification: Patient continues to report psychotic symptoms and has significant depressive symptoms. Patient continues to require medication adjustment and titration in a safe and therapeutic milieu.
[2021-09-20] MEDS: lurasidone 60mg tablet PO SCH (17:30)
[2021-09-20] MEDS: PALIPERIDONE 3 MG TAB.ER.24 PO SCH (20:03)
[2021-09-20] MEDS: traZODone 50mg tablet PO SCH (20:03)
[2021-09-20 20:09] VITALS: BP 137/85
--- NOTE | 2021-09-21 01:49 | NUR ---
Nursing Progress Note: Legal hold: VOL Client on voluntary status Report received from ALEX Mena with use of SBAR. Why they are here: "Chris presented as a failure to thrive AEB being consumed with his fear of getting murdered. Chris reported that he has a history of schizophrenia. Before admission he had been off his medications for 5 to 6 days and was actively paranoid." Assessment What happened this shift: The patient was seen at bedside for 1:1. He says he's doing well, and he looks like it. Patient is denying all Covid symptoms and will remain isolated until cleared. He spends his time reading and listening to headphones. Patient says he's bored from being in his room. He denies all MH symptoms, except for AH that are so low volume that he can block it by distraction. S/I, H/I: Denies A/VH: Reports AH very low volume Sleep: See sleep assessment ADL's: Independent Group attendance: No Group Meetings today. Were meds taken: Yes. Any med S/E: None observed or reported Mental Status Exam Appearance: Neat and appropriately dressed for the unit in green scrubs and white shirt Eye contact: Good Behavior: Pleasant & Cooperative. Speech: Normal Rate & Rhythm. Mood: Smiling. Bored Affect: Congruent Thought process: Linear Thought Content: Meeting needs Cognition: A/O x4 Insight: Fair Judgment: Fair Interventions PRNs: None Therapeutic interventions: Maintained a safe and therapeutic environment, provided clear and simple instructions, group participation could not be encouraged given quarantine, monitored behaviors and need for intervention and redirection, provided active listening and positive encouragement, handwashing r/t +MRSA NS, maintained Q 15min safety checks. Restraints/seclusion/emergency medication: NA Justification: Patient continues to report psychotic symptoms and has significant depressive symptoms. Patient continues to require medication adjustment and titration in a safe and therapeutic environment.
[2021-09-21 08:20] VITALS: BP 120/68
[2021-09-21] MEDS: nicotine 21mg patch - 24 hr TD SCH (08:53)
[2021-09-21] MEDS: buPROPion SR 100mg tab PO SCH ×2 (08:53→13:56)
[2021-09-21] MEDS: divalproex sodium 500mg tablet.DR PO SCH ×2 (08:53→20:10)
--- NOTE | 2021-09-21 10:06 | NUR ---
DCP Presenting Issues: Pt's ready for d/c on voluntary status, pt is wanting to enter drug rehab but have not been able to find a program in [facility] that has available beds. Clt's d/c was postponed due to COVID outbreak and him having tested positive. Pt's sustainability purchasing agent have maintained that pt will need to rt to [facility] if he's unable to get into a rehab program upon d/c. Attending PA requesting SS support w/dcp activities. Interventions: Clinician met w/pt and engaged him in dcp activities, pt continues to maintain that he wants to get into a rehab program, clinician explained that he can continue to work w/[employer] when he returns to [facility], pt plans to contact his sustainability purchasing agent to see if he can go to [facility]. Clinician informed pt that since he's ready to d/c we have to d/c him therefore, clinician will contact parole to coordinate transportation for him to rt to [facility]. Clinician had t/c w/pt's sustainability purchasing [phone], left requesting rt t/c to coordinate d/c & transportation for pt to rt to [facility]. Plan: Clinician will continue to engage pt's sustainability purchasing agent in dcp activities. Anahi Bee LCSW Addendum: 09/21/21 at 1047 by Anahi Bee SS Amended: Links added.
[2021-09-21] MEDS ORDERED: ondansetron 4mg rapidly disintigrating tab PO PRN (10:10)
--- NOTE | 2021-09-21 10:59 | NUR ---
DCP Presenting Issues: Pt's on vol status, medically cleared for d/c, [facility] Interventions: Clinician had t/c w/Charity Almaraz pt's property and casualty insurance agent [phone] and coordinated dcp & transportation for pt. Per t/c, pt will d/c @ 9:00 AM, parole agents will pick pt up upon d/c & transport pt back to [facility]. Charity asked that clinician set up follow-up care for pt thru [facility]. Clinician consulted w/attending PA, per consultation, pt will d/c with 30-days of meds. Clinician had t/c with Yolie Herrera, [facility] wildlife conservation professor to coordinate f/u care for pt. Per t/c Yolie will call clinician back with appointment date & time. Plan: Pt will d/c on @ 9:00 AM, parole agents will pick pt up. Anahi Bee LCSW Addendum: 09/21/21 at 1114 by Anahi Bee SS Amended: Links added.
[2021-09-21] MEDS ORDERED: NICO-687 TD (15:02)
[2021-09-21] MEDS ORDERED: DIVA500T2 PO (15:02)
[2021-09-21] MEDS ORDERED: NICO-907 BC (15:02)
[2021-09-21] MEDS ORDERED: LURA60TA PO (15:02)
[2021-09-21] MEDS ORDERED: TRAZ-251 PO (15:02)
[2021-09-21] MEDS ORDERED: ONDA4TAB12 PO (15:02)
[2021-09-21] MEDS ORDERED: BUPR100T7 PO (15:02)
--- NOTE | 2021-09-21 17:29 | NUR ---
Nursing Progress Note: Legal hold: VOL Client on voluntary status Report received from BIPIN Gusman with use of SBAR. Why they are here: "Chris presented as a failure to thrive AEB being consumed with his fear of getting murdered. Chris reported that he has a history of schizophrenia. Before admission he had been off his medications for 5 to 6 days and was actively paranoid." Assessment What happened this shift: Received patient while he was sitting on his bed. According to BIPIN Gusman, patient can come out of COVID Isolation this morning. Informed patient we would be stopping his COVID Isolation now (0630), but he would need to continue to wear his COVID mask and remain at least 6 feet away from other patients on the unit, and while in the Community Room. Patient immediately went down to shower. Dirty linens and trash double bagged and removed from his room. Services Program Manager came to his room and cleaned the top and bottom of his mattress, and other areas of his room at 0655. Patient states Im feeling alive this morning. Denies any s/s of COVID. Patient states that he continues to hear whispers of someone, but does not understand what they are saying to him. Patient spent much of the day in the Community Room playing cards and watching TV. At approximately 1450, patient joined others into going outside to a patio break. Patient reports he received his Latuda 30 minutes before dinner last night, and it made him vomit. Patient teaching done and instructed patient that he is to take his Latuda after he has eaten at least 350 calories of his dinner meal. . LOUISE Constantino ordered Zofran as needed, and well as changed the Paliperidone to 3mg po hs. Pt will discharge on at 9:00 am with [facility] Agent. S/I, H/I: Denies A/VH: + AH in the form of whispers, but reports I cannot understand what they are saying. Sleep: 8.75 hours ADL's: Independent, Showered Today. Group attendance: No Group Meetings held today. Were meds taken: Yes, without hesitation. Any med S/E: None observed or reported Mental Status Exam Appearance: Neat and appropriately dressed for the unit in green scrubs and white shirt Eye contact: Good Behavior: Pleasant & Cooperative. Speech: Normal Rate & Rhythm. Mood: Im feeling alive today. Affect: Cheerful Thought process: Linear Thought Content: Meeting needs Cognition: A/O x4 Insight: Fair Judgment: Fair Interventions PRNs: None Therapeutic interventions: Maintained a safe and therapeutic environment, provided clear and simple instructions, group participation could not be encouraged given quarantine, monitored behaviors and need for intervention and redirection, provided active listening and positive encouragement, handwashing r/t +MRSA NS, maintained Q 15min safety checks. Restraints/seclusion/emergency medication: NA Justification: Patient continues to report psychotic symptoms and has significant depressive symptoms. Patient continues to require medication adjustment and titration in a safe and therapeutic environment.
[2021-09-21] MEDS: lurasidone 60mg tablet PO SCH (17:54)
[2021-09-21 20:00] VITALS: BP 127/78
[2021-09-21] MEDS: traZODone 50mg tablet PO SCH (20:10)
--- NOTE | 2021-09-22 01:25 | NUR ---
Legal hold: VOL Client on voluntary status Report received from ALEX Mena with use of SBAR. Why they are here: "Chris presented as a failure to thrive AEB being consumed with his fear of getting murdered. Chris reported that he has a history of schizophrenia. Before admission he had been off his medications for 5 to 6 days and was actively paranoid." Assessment What happened this shift: Patient was seen in the group room watching tv. He was masked up and social distanced. "I'm just happy to be out of that room." He says he's feeling good, knows he's discharging , and is OK about it. Still denying MH symptoms, just little whispers, and doesn't appear to have any right now. He continues to be compliant with staff and medications. S/I, H/I: Denies A/VH: Reports AH very low volume Sleep: See sleep assessment ADL's: Independent Group attendance: No Group Meetings today. Were meds taken: Yes. Any med S/E: None observed or reported Mental Status Exam Appearance: Neat and appropriately dressed for the unit in green scrubs and white shirt Eye contact: Good Behavior: Pleasant & Cooperative. Speech: Normal Rate & Rhythm. Mood: Smiling. Bored Affect: Congruent Thought process: Linear Thought Content: Meeting needs Cognition: A/O x4 Insight: Fair Judgment: Fair Interventions PRNs: None Therapeutic interventions: Maintained a safe and therapeutic environment, provided clear and simple instructions, group participation could not be encouraged given quarantine, monitored behaviors and need for intervention and redirection, provided active listening and positive encouragement, handwashing r/t +MRSA NS, maintained Q 15min safety checks. Restraints/seclusion/emergency medication: NA Justification: Patient continues to report psychotic symptoms and has significant depressive symptoms. Patient continues to require medication adjustment and titration in a safe and therapeutic environment.
[2021-09-22 06:47] VITALS: BP 113/63
[2021-09-22 07:00] VITALS: BP 112/64
--- NOTE | 2021-09-22 08:02 | NUR ---
Reassessment: Pt PO ~71% of regular meals, also noted to consume snacks; likely meeting minimum nutritional needs. LBM 09/20; bowel care available PRN. No nutrition intervention implemented at this time, will continue to monitor. Recs: 1. Continue Regular diet as tolerated 2. Bowel care per rx 3. Weekly wts Addendum: 09/22/21 at 0803 by Eleazar Mcfarland - Claims Counsel RD Amended: Links added. Addendum: 09/22/21 at [address] I have reviewed assessment by internal communications writer
[2021-09-22] MEDS: divalproex sodium 500mg tablet.DR PO SCH ×2 (08:03→20:39)
[2021-09-22] MEDS: buPROPion SR 100mg tab PO SCH ×2 (08:03→13:17)
[2021-09-22] MEDS: nicotine 21mg patch - 24 hr TD SCH (08:04)
--- NOTE | 2021-09-22 14:54 | NUR ---
[facility] Clinician met w/pt attempted to assist pt in establishing services via [facility] but there was no one there to take pt's call. Clinician contacted [facility], Yolie Herrera, per t/c, Yolie will complete a paper referral and call clinician back w/appointment for pt to f/u with. Anahi Bee LCSW Addendum: 09/22/21 at 1500 by Anahi Bee SS Amended: Links added.
--- NOTE | 2021-09-22 17:14 | NUR ---
Legal hold: VOL Client on voluntary status Report received from ALEX Aguilera with use of SBAR. Why they are here: "Chris presented as a failure to thrive AEB being consumed with his fear of getting murdered. Chris reported that he has a history of schizophrenia. Before admission he had been off his medications for 5 to 6 days and was actively paranoid." Assessment What happened this shift: Received patient while he was sitting in the dining room and administered his is medications. Patient appears to be smiling and excited for discharge tomorrow morning at 9:00 am. ELVIN Christian, met with patient to discuss discharge plan for tomorrow with this patient. Informed patient we will review the discharge orders in the morning, his medications were here and located in the [facility], and the RN will need to collect a nasal sample for MRSA as he has been here over 21 days. Instructed the PCT will inventory his belongings and compare it to the inventory list we made on the day he was admitted to our unit, and review his discharge instructions written by Anahi and the Psychiatrist. Patient had no further questions at this time. Patient spent much of the day in the Community Room watching movies with other patients and eating meals and snacks. S/I, H/I: Denies A/VH: Denies Sleep: 7 hours ADL's: Independent Group attendance: No Group Meetings held today. Were meds taken: Yes, without hesitation. Any med S/E: None observed or reported Mental Status Exam Appearance: Neat and appropriately dressed in green scrubs and a black long sleeve undershirt. Eye contact: Good Behavior: Pleasant & Cooperative. Speech: Normal Rate & Rhythm. Mood: Smiling. Affect: Congruent Thought process: Linear Thought Content: Meeting needs Cognition: A/O x4 Insight: Fair Judgment: Fair Interventions PRNs: None Therapeutic interventions: Maintained a safe and therapeutic environment, provided clear and simple instructions, group participation could not be encouraged given quarantine, monitored behaviors and need for intervention and redirection, provided active listening and positive encouragement, handwashing r/t +MRSA NS, maintained Q 15min safety checks. Restraints/seclusion/emergency medication: NA Justification: Patient continues to report psychotic symptoms and has significant depressive symptoms. Patient continues to require medication adjustment and titration in a safe and therapeutic environment.
[2021-09-22] MEDS: lurasidone 60mg tablet PO SCH (17:53)
[2021-09-22 20:07] VITALS: BP 137/81
[2021-09-22] MEDS: traZODone 50mg tablet PO SCH (20:39)
--- NOTE | 2021-09-23 05:22 | NUR ---
Nursing Progress Note: Legal hold: VOL Client on voluntary status Report received from Kenzie RN with use of SBAR. Why they are here: "Chris presented as a failure to thrive AEB being consumed with his fear of getting murdered. Chris reported that he has a history of schizophrenia. Before admission he had been off his medications for 5 to 6 days and was actively paranoid." Assessment What happened this shift: The patient was seen at bedside for 1:1. He denies all MH symptoms. Pt spent most of evening sitting in dayroom with peer either playing some game or watching television. Pt has bright affect. S/I, H/I: Denies A/VH: denies Sleep: See sleep assessment ADL's: Independent Group attendance: N/a Were meds taken: Yes. Any med S/E: None observed or reported Mental Status Exam Appearance: Neat and appropriately dressed for the unit in green scrubs and white shirt Eye contact: Good Behavior: Pleasant & Cooperative. Speech: Normal Rate & Rhythm. Mood: Smiling. Bored Affect: Congruent Thought process: Linear Thought Content: Meeting needs Cognition: A/O x4 Insight: Fair Judgment: Fair Interventions PRNs: None Therapeutic interventions: Maintained a safe and therapeutic environment, provided clear and simple instructions, group participation could not be encouraged given quarantine, monitored behaviors and need for intervention and redirection, provided active listening and positive encouragement, handwashing r/t +MRSA NS, maintained Q 15min safety checks. Restraints/seclusion/emergency medication: NA Justification: Patient continues to report psychotic symptoms and has significant depressive symptoms. Patient continues to require medication adjustment and titration in a safe and therapeutic environment.
[2021-09-23] MEDS: buPROPion SR 100mg tab PO SCH (07:13)
[2021-09-23] MEDS: nicotine 21mg patch - 24 hr TD SCH (07:14)
[2021-09-23] MEDS: divalproex sodium 500mg tablet.DR PO SCH (07:14)
--- NOTE | 2021-09-23 07:30 | NUR ---
Discharge Presenting Issues: Pt scheduled to d/c this morning to rt to [place] with parole agents. Interventions: Clinician had t/c with [facility] dcp and finalized pt's dcp and coordinated f/u care appointment for pt. Clinician consulted w/care team and reviewed pt dcp with his assigned RN. Clinician requested that lunch & snacks be packed for pt as he has a long ride back to [place]. Plan: [place] agents from [place] will pick pt up at 9:00 AM. Anahi Bee LCSW Addendum: 09/23/21 at 0744 by Anahi Bee SS Amended: Links added.
[2021-09-23 08:00] VITALS: BP 136/78
--- NOTE | 2021-09-23 09:00 | NUR ---
Discharge Note: 09/23/2021 0900 Received discharge orders. Patient scheduled to discharge today at 0900, [facility] Reviewed patient's discharge instructions with the patient in detail so that he understood which medications to continue and which medications to stop. Informed patient which medications he had already received this morning, and next medications would be due after lunch. MRSA Swab obtained and sent to the Lab as patient has been here more than 21 days. No wound pictures to take as he had no wounds when admitted. Belongings removed from the patient's locker and checked off on the Belongings List that was completed at the time of admission. All belongings accounted for and patient signed form. Patient had some belongings in the safe which were also present and given to the patient at [facility] time [facility] and well as personal belongings, and discharge medications provided by the Pharmacy. Patient escorted with these items and discharge folder to the front lobby and [facility], so they could escort him to their personal vehicle.
== END 2021-09-23 08:59 | disposition home or self-care (01) | DRG 750 ==
LOC: ER 16:01 → ED HOLD 08-27 16:10 → ADULT MH 08-27 16:45
PROVIDERS: ADMIT Psychiatry & Neurology Psychiatry; ATTEND Psychiatry & Neurology Psychiatry
DX: F20.9 Schizophrenia, unspecified (principal); U07.1 COVID-19; F22 Delusional disorders; R45.851 Suicidal ideations; D57.1 Sickle-cell disease without crisis; Z59.00 Homelessness unspecified; F15.10 Other stimulant abuse, uncomplicated; E66.3 Overweight; F12.10 Cannabis abuse, uncomplicated; F17.210 Nicotine dependence, cigarettes, uncomplicated; Z82.49 Family history of ischemic heart disease and other diseases of the circulatory system; Z84.1 Family history of disorders of kidney and ureter; Z83.3 Family history of diabetes mellitus; Z89.022 Acquired absence of left finger(s); Z65.3 Problems related to other legal circumstances; Z56.0 Unemployment, unspecified; Z71.6 Tobacco abuse counseling; F10.10 Alcohol abuse, uncomplicated
CPT/HCPCS: 36415; 80053; 80061; 80074; 80164; 80305; 80320; 81003; 83036; 83540; 83550; 84443; 85025; 87081; 87635; 99285; C9803